=== PATIENT | male | born 1955 | race Caucasian/White ===

== ENCOUNTER → 2016-07-09 | Day surgery (SDC) | payer BC ==
[2016-07-02 08:53] VITALS: Ht 172.7 cm; Wt 109.1 kg
[~2016-07-09] VITALS: Ht 172.7 cm; Wt 109.1 kg
[~2016-07-09] MED LIST: ASPCH81X PO; ATOR10TA82 PO; CHOL2000 PO; INSDGI SC; INSUINJ14 SC; LEVO50TA6 PO; LIDOCAINE HCL 2% 2 ML VIAL (20MG/ML) ONE; LOSA50TA6 PO; METO-157 PO; METO25TA56 PO; METOPROLOL TARTRATE 1 MG/ML VIAL ONE; MULT-506 PO; PROPOFOL IV EMULSION 10 MG/ML 20 ML VIAL IV ONE; SODIUM CHLORIDE 0.9% 500ML 500 ML IV ONE
[2016-07-09 09:03] VITALS: TEMP 36.6
--- NOTE | 2016-07-09 09:29 | Endo History and Physical ---
History & Physical Date of Service: Jul 09, 2016. Chief Complaint: Blood in stool Referring Physician: Valerio History of Present Illness blood in stool, screening Past Surgical History Hx Cardiac Surgery: No Hx Internal Defibrillator: No Hx Pacemaker: No Hx Abdominal Surgery: Yes (MADDIE) Hx of Implantable Prosthesis: No Hx Post-Op Nausea and Vomiting: No Hx Cancer Surgery: No Hx Thoracic Surgery: No Hx Orthopedic: Yes (LUMBAR DISCECTOMY (HERNIATED DISCS)) Hx Urinary Tract Surgery: Yes (RT NEPHRECTOMY) Family History Colon CA Social History Smoking Status: Never Smoker Hx Substance Use: No Hx Alcohol Use: No Allergies Coded Allergies: Sulfa Drugs (Verified Allergy, Intermediate, RASH AND THROAT SWELLING, ) Current Medications Reported Home Medications Medications Dose Route/Sig Max Daily Dose Days Date Category Dose Instructions Aspirin Chewable (Aspirin) 81 Mg Chew 81 Mg PO DAILY 07/02/16 Reported Vitamin D3 (Cholecalciferol) 2,000 Unit Cap 2 Cap PO DAILY 90 07/02/16 Reported Multivitamin (Multivitamins) Tab 1 Tab PO DAILY 07/02/16 Reported Reglan (Metoclopramide HCl) 10 Mg Tab 10 Mg PO QID 07/02/16 Reported Lopressor (Metoprolol Tartrate) 25 Mg Tab 25 Mg PO BID 07/02/16 Reported Cozaar (Losartan Potassium) 50 Mg Tab 50 Mg PO DAILY 07/02/16 Reported Lantus (Insulin Glargine) 100 Unit/Ml Inj 20 Units SC QPM 07/02/16 Reported WILL ADJUST DOSE IF NEEDED PER BSG Levothyroxine Sodium 50 Mcg Tab 1 Tab PO QAM 90 07/02/16 Reported Lipitor (Atorvastatin Calcium) 10 Mg Tab 10 Mg PO DAILY 07/02/16 Reported Novolog Penfill (Insulin Aspart) 100 Unit/ Inj 0 SC AC 11/15/11 Reported Vital Signs Weight (Kilograms): 109.09 Height (Feet): 5 Height (Inches): 8 Date Time Temp Pulse Resp B/P Pulse Ox O2 Delivery O2 Flow Rate FiO2 07/09/16 09:03 36.6 93 20 153/81 94 Room Air Physical Exam General Appearance: WD/WN, no apparent distress Assessment and Plan colonoscopy today
--- NOTE | 2016-07-09 09:45 | Discharge Instructions ---
Endoscopy Patient Instructions Date / Procedure(s) Performed Jul 09, 2016. Colonoscopy Allergy Information Coded Allergies: Sulfa Drugs (Verified Allergy, Intermediate, RASH AND THROAT SWELLING, ) Discharge Date / Findings Jul 09, 2016. diverticulosis and small internal hemorrhoids Medication Instructions Stopped Medication(s): Vitamins Restart Stopped Medication(s): ok to resume home medications as above Provider Instructions Activity Restrictions - No exercising or heavy lifting for 24 hours. - Do not drink alcohol the day of the procedure. - Do not drive a car or operate machinery until the day after the procedure. - Do not make any important decisions or sign important papers in 24 hours after the procedure. Following Day: - Return to full activity which may include returning to work/school. Diet Start your diet with liquids and light foods (jello, soup, juice, toast). Then eat your usual diet if not nauseated. Treatment For Common After Affects For mild abdominal pain, bloating, or excessive gas: - Rest - Eat lightly - Lie on right side Follow-Up Information Follow-up with Valerio as scheduled Anesthesia Information What You Should Know You have had a procedure that required some medicine to reduce anxiety and discomfort. This treatment is called moderate sedation. After receiving the treatment, you may be sleepy, but you will be able to breathe on your own. The effects of the treatment may last for several hours. Follow these instructions along with Activity/Diet recommendations noted above: * Do NOT do anything where dizziness or clumsiness would be dangerous. * Rest quietly at home today, then you can be up and about tomorrow. * Have a responsible person stay with you the rest of today. * You may have had an I.V. today. If so, you may take the dressing off later today. Recommendations Call your doctor if: * Trouble breathing * Continuous vomiting for more than 24 hours * Temperature above 101 degrees * Severe abdominal pain or bloating * Pain not relieved by pain medicine ordered * There is increased drainage or redness from any incision * A large amount of rectal bleeding greater than 2-3 tablespoons. (If you had a polyp/s removed or have hemorrhoids, a small amount of blood - from the rectum is to be expected.) * You have any unanswered questions or concerns. IN THE EVENT OF A SERIOUS EMERGENCY, GO TO THE NEAREST EMERGENCY ROOM Your discharge instructions were prepared by provider Ayala Cordero. Patient Instructions Signature Page Grayson Wilhelm Patient (or Guardian) Signature/Date: I have read and understand the instructions given to me by my caregivers. Caregiver/RN/Doctor Signature/Date: The above-named patient and/or guardian has received patient instructions on this date. + Original Patient Signature Page (only) stays with chart. Please make copy for patient.
--- NOTE | 2016-07-09 09:51 | GI REPORT ---
Procedure Date: 07/09/2016 9:25 AM Procedure: Colonoscopy Indications: Screening for colorectal malignant neoplasm Medicines: Propofol per Anesthesia Complications: No immediate complications. Estimated blood loss: None. Estimated Blood Loss: Estimated blood loss: none. Procedure: Pre-Anesthesia Assessment: - Prior to the procedure, a History and Physical was performed, and patient medications, allergies and sensitivities were reviewed. The patient's tolerance of previous anesthesia was reviewed. - The risks and benefits of the procedure and the sedation options and risks were discussed with the patient. All questions were answered and informed consent was obtained. - Patient identification and proposed procedure were verified prior to the procedure by the physician and the nurse. The procedure was verified in the pre-procedure area in the procedure room. - Mental Status Examination: alert and oriented. Airway Examination: normal oropharyngeal airway and neck mobility. Respiratory Examination: clear to auscultation. CV Examination: normal. Abdominal Examination: bowel sounds present, abdomen soft and non-tender, no masses or organomegaly noted. - ASA Grade Assessment: III - A patient with severe systemic disease. After I obtained informed consent, the scope was passed under direct vision. Throughout the procedure, the patient's blood pressure, pulse, and oxygen saturations were monitored continuously. The Scope was introduced through the anus and advanced to the terminal ileum. The colonoscopy was performed without difficulty. The patient tolerated the procedure well. The quality of the bowel preparation was good. Findings: The perianal and digital rectal examinations were normal. Pertinent negatives include normal sphincter tone and no palpable rectal lesions. The terminal ileum appeared normal. Multiple small and large-mouthed diverticula were found in the sigmoid colon. Internal hemorrhoids were found during retroflexion. The hemorrhoids were small and Grade I (internal hemorrhoids that do not prolapse). Impression: - The examined portion of the ileum was normal. - Diverticulosis in the sigmoid colon. - Internal hemorrhoids. - No specimens collected. Recommendation: - Repeat colonoscopy in 10 years for screening purposes. - Return to referring physician as previously scheduled. - Discharge patient to home. Ayala Cordero D.O. Ayala Cordero DO 07/09/2016 9:50:26 AM This report has been signed electronically. Note Initiated On: 07/09/2016 9:25 AM I attest to the content of the Intraoperative Record and orders documented therein, exceptions below
[2016-07-09 10:18] VITALS: BP 148/93; PULSE 72; O2SAT 94
--- NOTE | 2016-07-09 10:26 | Anesthesiology Progress Note ---
Anesthesia Post Op Note Date & Time Jul 09, 2016 at 10:27 Vital Signs Pain Intensity: 0 Vital Signs Past 12 Hours Date Time Temp Pulse Resp B/P Pulse Ox O2 Delivery O2 Flow Rate FiO2 07/09/16 10:18 72 20 148/93 94 Room Air 07/09/16 10:04 73 20 156/91 94 Room Air 07/09/16 09:49 77 20 128/68 95 Room Air 07/09/16 09:03 36.6 93 20 153/81 94 Room Air Notes Mental Status: alert / awake / arousable, participated in evaluation Pt Amnestic to Procedure: Yes Nausea / Vomiting: adequately controlled Pain: adequately controlled Airway Patency, RR, SpO2: stable & adequate BP & HR: stable & adequate Hydration State: stable & adequate Anesthetic Complications: no major complications apparent Pt doing well.
== END | disposition home or self-care (01) ==
LOC: C.GI 08:31
PROVIDERS: ATTEND Internal Medicine
DX: Z12.11 Encounter for screening for malignant neoplasm of colon (principal); Z80.0 Family history of malignant neoplasm of digestive organs; K57.50 Diverticulosis of both small and large intestine without perforation or abscess without bleeding; K64.8 Other hemorrhoids; Z88.2 Allergy status to sulfonamides; Z98.890 Other specified postprocedural states; Z79.82 Long term (current) use of aspirin

== ENCOUNTER → 2017-03-07 | Outpatient (CLI) | payer BC ==
[~2017-03-07] MED LIST changes: -LIDOCAINE HCL 2% 2 ML VIAL (20MG/ML) ONE; -METOPROLOL TARTRATE 1 MG/ML VIAL ONE; -PROPOFOL IV EMULSION 10 MG/ML 20 ML VIAL IV ONE; -SODIUM CHLORIDE 0.9% 500ML 500 ML IV ONE
--- NOTE | 2017-03-07 10:44 | DIAGNOSTIC IMAGING REPORT ---
(CHEST) THORAX WITHOUT CT DOSE: 1849.04 mGy.cm CLINICAL HISTORY: 61 years-old Male with KIDNEY CANCER. History of prior right-sided nephrectomy with history of kidney cancer TECHNIQUE: Multiaxial CT images of the chest were performed without contrast. A dose lowering technique was utilized adhering to the principles of ALARA. COMPARISON: CT abdomen and pelvis of same day FINDINGS: Thyroid is homogeneous. Evaluation for adenopathy is limited without the use of IV contrast. Mildly prominent hilar and mediastinal lymph nodes are noted. Right hilar lymph nodes are up to 1.8 x 1.2 cm. Heart is normal in size without pericardial effusion. Coronary arterial calcifications are present. There is no pneumothorax, pleural effusion or focal airspace consolidation. Scattered calcific granulomas are noted. There are multiple scattered solid pulmonary nodules of the bilateral lungs within a multilobar distribution, most of which measure in the 2-3 mm range (see bookmarks). Within the right upper lobe, there are nodules in a tree-in-bud distribution as seen on image 122 of series 6 measuring up to 3 mm. 4 mm pleural-based nodularity of the left lower lobe on image 178 series 6 suggests scarring. No pulmonary masses identified. Central airways are patent. Prior cholecystectomy. No acute amount the of the imaged upper abdomen. Mild symmetric bilateral gynecomastia. There are no suspicious lytic or blastic bony lesions identified. Multilevel endplate spurring of the spine. Hemangioma at T11. Ill-defined lucent lesion measuring 9 mm involving the posterior left ninth rib on image 199 series 6 is nonspecific however appears nonaggressive. IMPRESSION: 1. No acute intrathoracic abnormality identified. 2. Prior granulomatous disease. 3. Mildly prominent hilar and mediastinal lymph nodes are nonspecific however are likely benign. Attention at follow-up recommended. 4. Scattered solid pulmonary nodules in a multilobar distribution bilaterally are seen measuring up to 2-3 mm, some of which are within a tree-in-bud distribution within the right upper lobe suggesting infectious or inflammatory etiology. 5. No lobar airspace consolidations. 6. 9 mm lucent lesion of the posterior left ninth rib is nonspecific however appears nonaggressive. Please refer to below summary of Fleischner criteria recommendations for follow-up of incidental CT nodules (Katiana Rendon, Guidelines for management of small pulmonary nodules detected on CT scans: A statement from the Fleischner Society, Radiology 237: [phone].) SOLID NODULES Multiple nodules size: <6 mm * Low risk patients: no routine follow-up * high risk patients: optional CT at 12 months Note: newly detected indeterminate nodule in persons 35 years of age or older. * Low risk patients: minimal or absent history of smoking and/or other known risk factors * high risk patients: history of smoking or of other known risk factors (e.g. first degree relative with lung cancer, or exposure to asbestos, radon, uranium) * if a nodule up to 8 mm is partly solid or is ground glass further follow-up is required after 24 months to exclude possible slow growing adenocarcinoma (LLUVIA) The above report was generated using voice recognition software. It may contain grammatical, syntax or spelling errors. Electronically signed by: Diego Castillo M.D. 03/07/2017 10:43 AM Dictated Date/Time: 03/07/2017 10:27 AM
--- NOTE | 2017-03-07 12:10 | DIAGNOSTIC IMAGING REPORT ---
CT SCAN OF THE ABDOMEN AND PELVIS WITHOUT IV CONTRAST CLINICAL HISTORY: Renal cell carcinoma. COMPARISON STUDY: No priors. TECHNIQUE: CT scan of the abdomen and pelvis is performed from the lung bases to the proximal femora. Images are reviewed in the axial, sagittal, and coronal planes. IV contrast was not administered for this examination as per the referring clinician. Note that the examination is suboptimal without oral and IV contrast. A dose lowering technique was utilized adhering to the principles of ALARA. FINDINGS: Lung bases: The heart is normal in size and without pericardial effusion. There are scattered coronary artery calcifications. There is a calcified granuloma the left lung base. The lung bases are otherwise clear. There is a tiny hiatal hernia. Liver: The unenhanced liver is normal in size, contour, and attenuation. There is no intrahepatic biliary ductal dilatation. Gallbladder: Surgically absent. Spleen: Normal in size and attenuation. Pancreas: The unenhanced pancreas is atrophic and grossly unremarkable. Adrenal glands: Unremarkable. Kidneys: The right kidney is surgically absent. There is no evidence of recurrent or residual soft tissue lesion in the right renal fossa. The unenhanced left kidney demonstrates mild cortical atrophy and is without hydronephrosis. There are no left renal calculi identified. There is no evidence of contour deforming renal mass lesion involving the left kidney. Abdominal vasculature: The abdominal aorta is normal in course and caliber noting mild atherosclerotic calcification. Bowel: There is mild colonic diverticulosis without CT evidence of acute diverticulitis. No bowel obstruction is seen. The appendix is well-visualized and normal. Peritoneum: There is no intraperitoneal free air or abdominal ascites. Small foci of induration within the ventral abdominal wall are likely related to subcutaneous injections. Fat necrosis is suggested in the right retroperitoneal space on image #231. Lymphadenopathy: None. Pelvic viscera: The prostate gland is diminutive and heterogeneous. The bladder wall appears thickened and trabeculated suggesting chronic outlet obstruction. Skeletal structures: There is mild to moderate lumbosacral spondylosis. A hemangioma is noted in the body of T11. No lytic or blastic lesions are seen. IMPRESSION: 1. There is no evidence of metastatic disease in the abdomen or pelvis. 2. There are postoperative changes from previous right nephrectomy. 3. Mild colonic diverticulosis without CT evidence of acute diverticulitis. 4. Additional findings as above. Electronically signed by: Chacho Suarez M.D. 03/07/2017 12:09 PM Dictated Date/Time: 03/07/2017 12:01 PM
== END | disposition home or self-care (01) ==
LOC: C.CTS 10:05
PROVIDERS: ATTEND Urology
DX: C64.1 Malignant neoplasm of right kidney, except renal pelvis (principal); R91.8 Other nonspecific abnormal finding of lung field; R59.0 Localized enlarged lymph nodes

== ENCOUNTER → 2017-03-22 | Outpatient (CLI) | payer OTHER ==
--- NOTE | 2017-03-22 19:06 | DIAGNOSTIC IMAGING REPORT ---
L ELBOW MIN 3 VIEWS ROUTINE CLINICAL HISTORY: Left elbow pain. COMPARISON: None FINDINGS: Note is made of a 1.5 cm bony excrescence arising from the medial metadiaphysis of the left humerus consistent with a supracondylar process. Alignment of the left elbow is anatomic. There is no fracture or joint effusion. There is no osseous lesion. IMPRESSION: 1. No acute fracture or joint effusion of the left elbow. 2. Supracondylar process of the left humerus, a congenital/developmental finding. 3. Mild osteoarthritis of the ulnotrochlear articulation. Electronically signed by: Michael Love M.D. 03/22/2017 7:04 PM Dictated Date/Time: 03/22/2017 7:02 PM
--- NOTE | 2017-03-22 19:09 | DIAGNOSTIC IMAGING REPORT ---
L HAND MIN 3 VIEWS ROUTINE CLINICAL HISTORY: Joint pain. COMPARISON: None FINDINGS: Alignment of the left hand is anatomic. No acute fracture. No erosions are identified. There is minimal joint space narrowing and mild osteophytosis within several articulations of the left hand. Apparent soft tissue swelling is noted within several fingers, most pronounced at the PIP joints of the second, third and fourth digits. IMPRESSION: 1. No acute fracture or dislocation within the left hand. 2. 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 Electronically signed by: Michael Love M.D. 03/22/2017 7:07 PM Dictated Date/Time: 03/22/2017 7:04 PM
== END | disposition home or self-care (01) ==
LOC: C.RAD 17:57
PROVIDERS: ATTEND Physician Assistant
DX: M19.042 Primary osteoarthritis, left hand (principal); M25.629 Stiffness of unspecified elbow, not elsewhere classified

== ENCOUNTER → 2017-11-13 | Outpatient (CLI) | payer OTHER ==
[2017-11-13 10:30] LABS: HEMOGLOBIN 14.9 g/dL (14.0-18.0); MEAN CELL VOLUME 97.3 fL (80-100); MEAN CORPUSCULAR HEMOGLOBIN 31.5 pg (25-34); MEAN CORPUSCULAR HGB CONC 32.4 g/dl (32-36); MEAN PLATELET VOLUME 11.8 fL (7.4-10.4); PLATELET COUNT 198 K/uL (130-400); RED CELL DISTRIBUTION WIDTH CV 12.6 % (11.5-14.5); RED CELL DISTRIBUTION WIDTH SD 44.9 fL (36.4-46.3); WHITE BLOOD COUNT 7.97 K/uL (4.8-10.8)
[2017-11-13 10:54] LABS: ALBUMIN 3.4 gm/dl (3.4-5.0); BLOOD UREA NITROGEN 25 mg/dl (7-18); CALCIUM 8.5 mg/dl (8.5-10.1); CARBON DIOXIDE 25 mmol/L (21-32); CREATININE 1.73 mg/dl (0.60-1.40); GLUCOSE 234 mg/dl (70-99); PHOSPHORUS 3.2 mg/dl (2.5-4.9); POTASSIUM 4.5 mmol/L (3.5-5.1); SODIUM 138 mmol/L (136-145)
== END | disposition home or self-care (01) ==
LOC: C.LAB 10:00
PROVIDERS: ATTEND Internal Medicine Nephrology
DX: E11.8 Type 2 diabetes mellitus with unspecified complications (principal); I12.9 Hypertensive chronic kidney disease with stage 1 through stage 4 chronic kidney disease, or unspecified chronic kidney disease; C64.9 Malignant neoplasm of unspecified kidney, except renal pelvis; E55.9 Vitamin D deficiency, unspecified; N18.3 Chronic kidney disease, stage 3 (moderate)

== ENCOUNTER 2020-10-16 20:16 | Inpatient (IN) ==
[2020-10-16] MEDS ORDERED: GLUCOSE 10 TABS/TUBE PO PRN (22:57)
[2020-10-16] MEDS ORDERED: CARBOHYDRATES FOR HYPOGLYCEMIA PO PRN (22:57)
[2020-10-16] MEDS ORDERED: DEXTROSE 50% 50 ML SYRINGE IV PRN (22:57)
[2020-10-16] MEDS ORDERED: GLUCAGON FOR INJ 1 MG VIAL SQ PRN (22:57)
[2020-10-16] MEDS ORDERED: ACETAMINOPHEN 325 MG TAB PO PRN (22:57)
[2020-10-16] MEDS ORDERED: GLUCOSE 40% GEL 15 GM TUBE PO PRN (22:57)
[2020-10-16] MEDS ORDERED: FLUTICASONE PROPIONATE NA SPR 16 GM BTL PRN (23:20)
--- NOTE | 2020-10-16 23:27 | History & Physical Report ---
Date of Service October 16, 2020 Assessment & Plan (1) Acute renal failure: 64 yo M Hx renal cell carcinoma s/p right nephrectomy in 2013, HTN, HLD, hypothyroidism, DM2 on insulin therapy admitted for acute renal failure with suspected tick-borne infection. Acute renal failure, Hx right nephrectomy for RCC: - History of radical HALN R kidney and adrenal gland [place] [facility] [place] with negative margins. - Presented to outside hospital today with several days of nausea, diarrhea, malaise, fatigue, head and body aches. - Had been thought to be sinus infection by PCP office via telehealth. - Found to have creatinine 6 (baseline 1.7) with BUN/Cr ratio of 10. - CTAP without obstructive signs, no pyelonephritis. - UA without infectious signs. - Will check urine and serum lytes, urine protein/Cr ratio. - Mcneill placed to monitor strict ins and outs. - No indication for emergent dialysis; K normal at outside facility prior to transfer, no arrhythmia, still making urine (though less than normal per patient). - LR at 100cc/hr x1 bag. - PCU for cardiac monitoring. - Nephrology consult ordered for AM. Suspected tick-borne illness: - removed small black item from right thigh several days ago, questions if it was a tick. - Labwork with significant thrombocytopenia and leukopenia, elevated LFTs, ARF suggests possible tick-borne cause. - COVID 19 test negative at outside facility and has received vaccination x2. - Repeat CBC, CMP. - Anaplasma, Babesia, Lyme, Ehrlichia labs ordered. - Will start doxycycline 100mg IV BID and await tick labs. Elevated LFTs: - Noted at outside ER with mild elevated AST/ALT to 100s. - No history of liver disease. - Suspect elevation due to tick-borne illness. - CTAP and RUQ US without evidence of hepatic steatosis or hepatitis. Patient had GB removed several years ago. DM2: - Chronic, on insulin therapy. - Lantus 15u BID with SSI, adjust based on BSGs. - DM2 diet. HTN, HLD: - Continue metoprolol and statin. - Hold ARB in setting of ARF. Hypothyroidism: - Continue levothyroxine. Code Status: FULL CODE FEN: DM2 diet DVT ppx: SCDs, no chemoppx given plts 40 Dispo: PCU, Nephrology consult AM, labwork for tick-borne causes of lab abnormalities. (2) Hypertension: (3) Hypothyroidism: (4) Hyperlipidemia: (5) Diabetes mellitus type 2 with complications: Admission and Anticipated Discharge Date Admission Date: October 16, 2020 History of Present Illness Chief Complaint: ARF Primary Care Provider: Gypsy Matt, DO 64 yo M Hx renal cell carcinoma s/p right nephrectomy in 2012, HTN, HLD, hypothyroidism, DM2 on insulin therapy presents as a direct admission for acute renal failure, elevated LFTs, leukopenia, and thrombocytopenia. History gathered from outside hospital records, patient, and patient's . For the last several days patient has had fatigue, malaise, nausea, diarrhea, headaches. He was evaluated via Telehealth by PCP and thought to be sinus infection, supportive care. When symptoms did not go away and patient began to have decreased urination and changes in mental status they went to [place] [facility]. There he had labwork which showed elevated Cr of 6, elevated LFTs, thrombocytopenia to 40s, and leukopenia. CTAP and RUQ US without liver pathology, pyelonephritis, other renal pathologies. CXR negative for pneumonia or fluid overload. Patient follows with Dr. Powell and was advised to be admitted here at [facility] for ARF. On my interview patient denies chest pain, SOB, fevers, chills, recent sick contacts, vomiting, abdominal pain. He denies hematuria, dysuria. He does not recall any recent tick bites, however reports "picking a small black spot off of his thigh a few days ago". Allergies Allergy/AdvReac Type Severity Reaction Status Date / Time Sulfa (Sulfonamide Allergy Intermediate RASH AND Verified 10/14/20 15:57 Antibiotics) THROAT SWELLING Home Medications Medication Instructions Recorded Confirmed Type aspirin 81 mg tablet 81 mg PO DAILY tab 12/22/18 10/16/20 History multivitamin 1 tab PO DAILY 12/22/18 10/16/20 History pen needle, diabetic 31 gauge x #50 ea 12/29/18 10/16/20 Rx 08/24" cholecalciferol (vitamin D3) 50 4,000 units PO DAILY tab 01/17/19 10/16/20 History mcg (2,000 unit) tablet metoclopramide HCl 10 mg tablet 10 mg PO BID #180 tab 01/29/20 10/16/20 Rx blood sugar diagnostic See Rx Instructions .ROUTE 02/15/20 10/16/20 Rx .COMPLEX #400 each Humalog KwikPen Insulin 100 See Rx Instructions .ROUTE 03/12/20 10/16/20 Rx unit/mL subcutaneous .COMPLEX #45 ml NS losartan 50 mg tablet See Rx Instructions .ROUTE 04/10/20 10/16/20 Rx .COMPLEX #90 tablet insulin glargine 100 unit/mL 30 unit SUBCUT HS #10 ml 05/05/20 10/16/20 Rx subcutaneous solution metoprolol tartrate 25 mg tablet 25 mg PO DAILY #90 tab 06/11/20 10/16/20 Rx atorvastatin 10 mg tablet 10 mg PO DAILY #90 tab 07/10/20 10/16/20 Rx levothyroxine 50 mcg tablet 50 mcg PO DAILY #90 tab 09/01/20 10/16/20 Rx sildenafil 100 mg tablet 100 mg PO DAILY PRN #20 tab 09/12/20 10/16/20 Rx fluticasone propionate [Flonase 1 sprays INTNAS DAILY PRN 10/16/20 10/16/20 History Allergy Relief] Past Med/Surg History Medical History Arthritis Benign essential hypertension Chronic kidney disease, stage III (moderate) Diabetes mellitus type 2 with complications Diabetic retinopathy Gastroparesis Hyperlipidemia Hypothyroidism Lumbar disc disease Renal cell carcinoma SNHL (sensorineural hearing loss) Vitamin D deficiency Surgical History History of back surgery (2004) 2005 S/P cholecystectomy S/p nephrectomy (06/2015) 06/2015- right secondary to RCC Family History Sister Breast cancer Mother Ovarian cancer Father Skin cancer Other No family history of adverse response to anesthesia No family history of bleeding disorder Denies family history of Prostate cancer Myocardial infarction Colorectal cancer Social History Smoking Status: Unknown if ever smoked Tobacco Type: Cigarettes and Smokeless Tobacco (Dip or Chew) Age Started Using Tobacco: 20; Age Quit Using Tobacco: 22; Second Hand Exposure: No; Hx Alcohol Use: No Hx Substance Use: No Preferred Language: Icelandic Communication Ability: Effective Visual Impairment: No Limitations Hearing Ability: Normal Manager Clinical Services Required: No Beliefs That Will Affect Care: None marital status: Current Living Situation: Family current occupational status: employed 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 Feels Safe at Home: Yes Childhood Exposure to Second-Hand Smoke: No caffeine: Yes during the past year weight has: remained stable Dental Care, Regularly: No Physical Activity Frequency: Daily Seatbelt Use: always Sunscreen Use: Yes Assistive Devices: None Review of Systems Review of Systems: All systems reviewed & are unremarkable except as noted in HPI & below Constitutional: + body aches, + fatigue and + malaise; no fever and no chills Respiratory: no cough and no dyspnea Cardiovascular: no chest pain, no palpitations and no edema Gastrointestinal: + nausea and + diarrhea/loose stools; no abdominal pain and no constipation Neurologic: + headache(s) and + confusion Physical Exam Constitutional: WD/WN, vitals as above Eyes: PERRL, conjunctivae normal, anicteric sclerae Neck: normal visual inspection Respiratory: normal respiratory effort, lungs clear to auscultation Cardiovascular: RRR, no murmur, no edema Gastrointestinal (Abdomen): Inspection/Auscultation: + abdomen distended and normal bowel sounds Percussion/Palpation: + abdomen tender (mild epigastric) and abdomen soft Musculoskeletal: no cyanosis or clubbing, moves all extremities Skin: no rashes, warm and dry Neurologic: Alert, tired appearing, answers questions appropriately. No tremors. Normal speech Psychiatric: A+Ox3, euthymic affect Results & Data Results & Data ([facility]) Vital Signs (Past 12 Hours) Vital Signs Temp Pulse Resp BP Pulse Ox 10/16/20 22:38 37.6 C H 97 H 18 154/79 H 90 Code Status & VTE Plan VTE Prophylaxis Plan VTE Prophylaxis will be ordered: Yes Supervising Physician Co-Signing Physician Notes Patient seen and examined, chart reviewed, case discussed with Dr. Askew and I agree with her assessment and plan as documented above. In brief, patient is a 64yo male with history of HTN, CKD III, HLP presenting from outside facility with complaint of CONCEPCION, cough, myalgias, diarrhea and weakness. Abnormal LFTs. removed a "black speck" from patient's right thigh. Also with ADAM on CKD, minimal UOP On exam he is afebrile, HD stable, NAD Skin - warm, dry, intact, small area of redness noted right thigh HEENT - NC/AT, PERRL, MMM, Neck supple Heart - +S1/S2, regular Lungs - CTA Abd - +BS, soft, mildly distended, mild epigastric tenderness Ext - warm, well perfused, no clubbing/cyanosis/edema Labs and images reviewed. Significant for pancytopenia - WBC=2.33, Hgb=12.1, Hct=35.6, MCV=92.5, Plt=36 Rm=038, CO2=19, BUN=65, Cr=6.44 ARH=287, VTL=375, DD=953, Alb=2.4 Anaplasma smear - POSITIVE Assessment/Plan - 64yo male with CONCEPCION/cough/myalgias/weakness - pancytopenia at baseline. LFT abnormalities and oliguric renal failure -Mcneill, monitor strict I/Os, check FeNA, monitor electrolytes and acid-base status. Patient may need HD d/t oliguria -Nephrology consultation appreciated -Doxycycline for Anaplasmosis -Repeat liver studies -Remainder of plan as above Resident Activity Tracking Resident Involvement: Resident Care Provided Care Provided: Adult Hospital Medicine (1) Acute renal failure Acute renal failure type: unspecified Qualified Code(s): N17.9 - Acute kidney failure, unspecified (2) Hyperlipidemia Hyperlipidemia type: unspecified Qualified Code(s): E78.5 - Hyperlipidemia, unspecified (3) Hypothyroidism Hypothyroidism type: unspecified Qualified Code(s): E03.9 - Hypothyroidism, unspecified (4) Hypertension Hypertension type: unspecified Qualified Code(s): I10 - Essential (primary) hypertension
[2020-10-16] MEDS ORDERED: LACTATED RINGER'S 1,000 ML IV SCH (23:30)
[2020-10-16] MEDS: DOXYCYCLINE HYCLATE 100 MG in DEXTROSE 5% 100 ML IV SCH (23:36)
[2020-10-16] MEDS: PATIENT'S HEIGHT AND/OR WEIGHT NEEDED SCH (23:36)
[2020-10-17 00:22] LABS: Albumin Globulin Ratio 0.8 (0.9-2); Albumin Level 2.4 gm/dl (3.4-5.0); Bilirubin,Total 0.6 mg/dl (0.2-1); Calcium 7.6 mg/dl (8.5-10.1); Est GFR (African American) 9.8 ml/min; Est GFR (Non-African American) 8.4 ml/min; Globulin 3.2 gm/dl (2.5-4.0); Potassium 4.1 mmol/L (3.5-5.1); Total Protein 5.6 gm/dl (6.4-8.2)
[2020-10-17 00:30] LABS: Hematocrit (blood only) 35.6 % (42-52); Hemoglobin 12.1 g/dL (14.0-18.0); Mean Corpuscular Hemoglobin 31.4 pg (25-34); Mean Corpuscular Volume 92.5 fL (80-100); Mean Platelet Volume 13.5 fL (7.4-10.4); Platelet Count 36 K/uL (130-400); RDW Standard Deviation 47.8 fL (36.4-46.3); Red Blood Count 3.85 M/uL (4.7-6.1); White Blood Count 2.33 K/uL (4.8-10.8)
[2020-10-17 00:40] LABS: Basophils # (auto) 0.02 K/uL (0-0.2); Basophils % (auto) 0.9 %; Echinocytes 3+; Immature Granulocytes # (auto) 0.01 K/uL (0.00-0.02); Immature Granulocytes % (auto) 0.4 %; Lymphocytes % (auto) 17.2 %; Monocytes # (auto) 0.11 K/uL (0.11-0.59); Monocytes % (auto) 4.7 %; Neutrophils # (auto) 1.79 K/uL (1.4-6.5); Platelet Estimate Decreased (Normal)
[2020-10-17 00:42] LABS: Neutrophils % (auto) 76.8 %
[2020-10-17 01:18] LABS: Appearance Urine Cloudy (Clear); Bacteria Urine Automated Negative (Negative); Blood Urine 3+ (Negative); Color Urine Dark Yellow; Epithelial Cell Urine Auto >30 /lpf (0-5); Glucose Urine UA Trace (Negative); Ketones Urine Trace (Negative); Leukocyte Esterase Urine Negative (Negative); Nitrite Urine Negative (Negative); Protein Urine 3+ (Negative); RBC Urine Automated >30 /hpf (0-4); Specific Gravity Urine 1.018 (1.000-1.030); Urobilinogen Urine Negative (Negative)
[2020-10-17 01:27] LABS: Bilirubin Urine 1+ (Negative)
[2020-10-17 01:35] LABS: Total Protein Urine Random 315.4 mg/dl (0-11.9)
[2020-10-17 01:37] LABS: Lyme Ab IgG w/WB Rflx Negative (Negative); Lyme Ab IgM w/WB Rflx Negative (Negative)
[2020-10-17 03:24] LABS: Amorphous Sediment Urine Present (None Prsent); Cast Urine Automated 0 /lpf (0-5)
--- NOTE | 2020-10-17 05:29 | Billing Data ---
Date of Service October 16, 2020 Coding Level of Care Code 09044 Initial Inpt Care Lvl 3
[2020-10-17] MEDS: LEVOTHYROXINE SODIUM 50 MCG TABLET PO SCH (05:48)
[2020-10-17 06:41] LABS: Anaplasmosis Smear(Rpt to DOH) Pos for Anaplasma
[2020-10-17] MEDS: PATIENT'S HEIGHT AND/OR WEIGHT NEEDED SCH ×2 (07:34→07:35)
[2020-10-17] MEDS: INSULIN ASPART 100 UNITS/ML 3 ML PEN SC SCH ×5 (07:52→22:28)
[2020-10-17] MEDS: MULTIVITAMIN TAB PO SCH (07:57)
[2020-10-17] MEDS: ATORVASTATIN 10 MG TAB PO SCH (07:57)
[2020-10-17] MEDS: METOPROLOL TARTRATE 25 MG TAB PO SCH (08:00)
--- NOTE | 2020-10-17 08:34 | Hospitalist Progress Note ---
Date of Service October 17, 2020 Assessment & Plan (1) Acute renal failure: 64 yo M Hx renal cell carcinoma s/p right nephrectomy in 2013, HTN, HLD, hypothyroidism, DM2 on insulin therapy admitted for acute renal failure with suspected tick-borne infection. Acute renal failure, due to anaplasmosis septic hypovolemia, Hx right nephrectomy for RCC - History of radical HALN R kidney and [place] [facility] [place] with [place]. . - Found to have creatinine 6 (baseline 1.7) with BUN/Cr ratio of 10. - CTAP without obstructive signs, no pyelonephritis. UA without infectious signs. - Urine lytes showing evidence of intrinsic damage - Mason placed to monitor strict ins and outs. - appreciate nephrology's recommendations - temporary dialysis catheter placed today by vascular surgery given worsening Cr, metabolic acidosis, anuria - dialysis today? - PCU for cardiac monitoring. DKA, Metabolic Acidosis without anion gap on IDDM2 - B-OH elevated to 34, glucose 400s this am, persistently 300s through morning into afternoon despite novolog coverage and being NPO - missed 30u lantus last night and received 15u this morning. - received multiple doses of regular insulin 10 mg IV to catch up with sugars and bring down control. 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 Patient had GB removed several years ago. HTN, HLD: - Continue metoprolol and statin. - Hold ARB in setting of ARF. Hypothyroidism: - Continue levothyroxine. Code Status: FULL CODE FEN: DM2 diet DVT ppx: SCDs, no chemoppx given plts 40 Dispo: PCU (2) Hypertension: (3) Hypothyroidism: (4) Hyperlipidemia: (5) Diabetes mellitus type 2 with complications: Admission and Anticipated Discharge Date Admission Date: October 16, 2020 Supervising Physician Co-Signing Physician Notes I personally examined the patient and verified all jovel points of history and exam, discussed case, and agree with decision making with Dr Millard. Mostly worried about dialysis, and what this might mean for long-term implications. Family present with multiple questions. Answered to the best of my ability. Vitals noted, in general he is awake and alert pleasant no distress. He does appear very fatigued. HEENT normocephalic atraumatic mucous membranes moist. Breathing unlabored no accessory muscle use good effort. Skin shows no rashes no pallor or icterus. Anaplasmosis with subsequent acute renal failuremost likely ATNtreating with IV doxycycline, has dialysis access, anticipate initiation of dialysis. Discussed with patient with ATN in his context, hopefully this does not mean permanent end-stage renal disease as much is severe acute renal f ailurediscussed that unfortunately for planning purposes this will be something that has to require day today assessment and will be very open ended, but will continue aggressive treatment. Otherwise as above. Subjective feeling somewhat better this morning. states he had been having chills and generally feeling ill for approximately a week. +dry heaving, diarrhea without blood. noticed he was producing less urine in the past two days, which brought him to the ER. Review of Systems Review of Systems: All systems reviewed & are unremarkable except as noted in Subjective Physical Exam Physical Exam: Constitutional:centrally obese, mildly uncomfortable appearing Eyes: EOMI, pupils equal and reactive bilaterally, no scleral icterus Cardiac: RRR, no murmurs, gallops or rubs. Normal S1, S2 Pulm: CTA BL, no wheezes, rhonchi, crackles or rubs, moving air well throughout both lungs Abd: soft, nontender, nondistended, normal bowel sounds, no rebound or guarding Extremities: 2+ peripheral pulses, no edema Neuro: no focal deficits, moving all 4 limbs, A&Ox3 : mason cath in place, mason bag with <200 ml orange, dark urine Results & Data Results & Data ([facility]) Vital Signs (Past 12 Hours) Vital Signs Temp Pulse Pulse Resp BP Pulse Ox Pulse Ox 10/17/20 07:58 36.7 C 69 18 120/69 96 10/17/20 07:21 87 10/17/20 04:02 37.3 C 97 H 22 132/72 95 10/17/20 01:09 90 10/16/20 23:25 37.6 C H 97 H 20 154/79 H 90 10/16/20 22:57 88 L 10/16/20 22:38 37.6 C H 97 H 18 154/79 H 90 Laboratory Results WBC 2.33 K/uL (4.8-10.8) L 10/16/20 23:19 RBC 3.85 M/uL (4.7-6.1) L 10/16/20 23:19 Hgb 12.1 g/dL (14.0-18.0) L 10/16/20 23:19 POC Hgb 10.9 g/dl (14.0-18.0) L 10/17/20 12:39 Hct 35.6 % (42-52) L 10/16/20 23:19 POC Hct 32 % (42-52) L 10/17/20 12:39 MCV 92.5 fL (80-100) 10/16/20 23:19 MCH 31.4 pg (25-34) 10/16/20 23:19 MCHC 34.0 g/dL (32-36) 10/16/20 23:19 RDW Std Deviation 47.8 fL (36.4-46.3) H 10/16/20 23:19 RDW Coeff of Rony 14.0 % (11.5-14.5) 10/16/20 23:19 Plt Count 36 K/uL (130-400) L 10/16/20 23:19 MPV 13.5 fL (7.4-10.4) H 10/16/20 23:19 Immature Gran % (Auto) 0.4 % 10/16/20 23:19 Neut % (Auto) 76.8 % 10/16/20 23:19 Lymph % (Auto) 17.2 % 10/16/20 23:19 Donley % (Auto) 4.7 % 10/16/20 23:19 Eos % (Auto) 0.0 % 10/16/20 23:19 Baso % (Auto) 0.9 % 10/16/20 23:19 Neut # (Auto) 1.79 K/uL (1.4-6.5) 10/16/20 23:19 Lymph # (Auto) 0.40 K/uL (1.2-3.4) L 10/16/20 23:19 Donley # (Auto) 0.11 K/uL (0.11-0.59) 10/16/20 23:19 Eos # (Auto) 0.00 K/uL (0-0.5) 10/16/20 23:19 Baso # (Auto) 0.02 K/uL (0-0.2) 10/16/20 23:19 Immature Gran # (Auto) 0.01 K/uL (0.00-0.02) 10/16/20 23:19 Blood Smear Review Cancelled 10/16/20 23:19 Platelet Estimate Decreased (Normal) L 10/16/20 23:19 Echinocytes 3+ 10/16/20 23:19 Sample Site L Radial 10/17/20 12:39 POC pH 7.30 (7.35-7.45) L 10/17/20 12:39 POC pCO2 33 mmHg (35-46) L 10/17/20 12:39 POC pO2 73 mmHg (80-95) L 10/17/20 12:39 POC HCO3 17 tiffanie/L (19-24) L 10/17/20 12:39 POC Total CO2 18 mmol/L (24-31) L 10/17/20 12:39 POC Base Excess -10.0 tiffanie/L (-9-1.8) L 10/17/20 12:39 ABG pH (Temp Correct) 7.304 (7.35-7.45) L 10/17/20 12:39 ABG pCO2 (Temp Corrct 33 mmHg (35-46) L 10/17/20 12:39 POC ABG pO2 at Pt Temp 73 10/17/20 12:39 POC ABG O2 Sat 93.0 % (90-95) 10/17/20 12:39 Maik Test Pass 10/17/20 12:39 O2 Delivery Device Room Air 10/17/20 12:39 POC Sodium 127 mmol/L (135-144) L 10/17/20 12:39 Sodium 129 mmol/L (136-145) L 10/17/20 11:36 POC Potassium 4.0 mmol/L (3.3-5.0) 10/17/20 12:39 Potassium 4.7 mmol/L (3.5-5.1) 10/17/20 11:36 Chloride 98 mmol/L (98-107) 10/17/20 11:36 Carbon Dioxide 18 mmol/L (21-32) L 10/17/20 11:36 Anion Gap 13.0 (3-11) H 10/17/20 11:36 BUN 79 mg/dl (7-18) H 10/17/20 11:36 Creatinine 7.75 mg/dl (0.6-1.4) H* 10/17/20 11:36 Est Cr Clr Drug Dosing 11.6 ml/min 10/17/20 11:36 Est GFR ( Amer) 7.8 ml/min 10/17/20 11:36 Est GFR (Non-Af Amer) 6.8 ml/min 10/17/20 11:36 BUN/Creatinine Ratio 10.2 (10-20) 10/17/20 11:36 Glucose 363 mg/dl (70-99) H* 10/17/20 11:36 POC Glucose 214 mg/dl (70-99) H 10/17/20 14:51 Calcium 7.2 mg/dl (8.5-10.1) L 10/17/20 11:36 Phosphorus 4.6 mg/dl (2.5-4.9) 10/17/20 09:07 Total Bilirubin 0.6 mg/dl (0.2-1) 10/16/20 23:19 AST 203 U/L (15-37) H 10/16/20 23:19 ALT 133 U/L (12-78) H 10/16/20 23:19 Alkaline Phosphatase 178 U/L (45-117) H 10/16/20 23:19 Total Creatine Kinase 1570 U/L (39-308) H 10/16/20 23:19 Total Protein 5.6 gm/dl (6.4-8.2) L 10/16/20 23:19 Albumin 2.2 gm/dl (3.4-5.0) L 10/17/20 09:07 Globulin 3.2 gm/dl (2.5-4.0) 10/16/20 23:19 Albumin/Globulin Ratio 0.8 (0.9-2) L 10/16/20 23:19 Beta-Hydroxybutyric Acd 24.51 mg/dl (0.2-2.81) H 10/17/20 11:36 Urine Color Dark Yellow 10/17/20 00:45 Urine Appearance Cloudy (Clear) A 10/17/20 00:45 Urine pH 5.0 (4.5-7.5) 10/17/20 00:45 Ur Specific Kel[place] 1.018 (1.000-1.030) 10/17/20 00:45 Urine Protein 3+ (Negative) H 10/17/20 00:45 Urine Glucose (UA) Trace (Negative) H 10/17/20 00:45 Urine Ketones Trace (Negative) H 10/17/20 00:45 Urine Blood 3+ (Negative) H 10/17/20 00:45 Urine Nitrite Negative (Negative) 10/17/20 00:45 Urine Bilirubin 1+ (Negative) H 10/17/20 00:45 Urine Urobilinogen Negative (Negative) 10/17/20 00:45 Ur Leukocyte Esterase Negative (Negative) 10/17/20 00:45 Urine WBC (Auto) 10-30 /hpf (0-5) H 10/17/20 00:45 Urine RBC (Auto) >30 /hpf (0-4) H 10/17/20 00:45 U Hyaline Cast (Auto) 0 /lpf (0-5) 10/17/20 00:45 U Epithel Cells (Auto) >30 /lpf (0-5) H 10/17/20 00:45 Urine Bacteria (Auto) Negative (Negative) 10/17/20 00:45 Ur Renal Epithelial Cell Not Reportable 10/17/20 00:45 Amorphous Sediment Present (None Prsent) A 10/17/20 00:45 Urine Yeast Not Reportable 10/17/20 00:45 Ur Random Creatinine 111.0 mg/dl 10/17/20 10:01 U Random Total Protein 315.4 mg/dl (0-11.9) H 10/17/20 00:45 U Random Total Protein Cancelled 10/17/20 00:45 Ur Random Sodium 36 mmol/L 10/17/20 10:01 Ur Random Urea Nitrogn 333 mg/dl 10/17/20 00:45 Protein/Creatinin Ratio 2.0 (0-0.2) H 10/17/20 00:45 Protein/Creatinin Ratio Cancelled 10/17/20 00:45 Anaplasma Smear See Comment A 10/16/20 23:19 A. phagocytophilum DNA Cancelled 10/16/20 23:19 Anaplasma Comment Pos for Anaplasma 10/16/20 23:19 Lyme Disease IgG Ab Negative (Negative) 10/16/20 23:19 Lyme Disease IgM Ab Negative (Negative) 10/16/20 23:19 COVID-19 Eval Order Covid19 at [facility] 10/17/20 Unknown SARS-CoV-2 (PCR) NEGATIVE (Negative) 10/17/20 Unknown Hep Bs Antigen Neg (Neg) 10/17/20 11:36 Hep Bs Antibody Non-Immune 10/17/20 11:36 Hep Bs Antibody, Quant < 3.10 mIU/mL (>or=10mIU/mL Immune) L 10/17/20 11:36 (1) Acute renal failure Acute renal failure type: unspecified Qualified Code(s): N17.9 - Acute kidney failure, unspecified (2) Hyperlipidemia Hyperlipidemia type: unspecified Qualified Code(s): E78.5 - Hyperlipidemia, unspecified (3) Hypothyroidism Hypothyroidism type: unspecified Qualified Code(s): E03.9 - Hypothyroidism, unspecified (4) Hypertension Hypertension type: unspecified Qualified Code(s): I10 - Essential (primary) hypertension
[2020-10-17] MEDS ORDERED: INSULIN GLARGINE SOLOSTAR 100 UNITS/ML 3 ML PEN SC SCH ×2 (09:00)
[2020-10-17] MEDS ORDERED: HEPARIN SOD 5,000 UNIT/0.5 ML VIAL SQ SCH (09:00)
[2020-10-17] MEDS ORDERED: ASPIRIN 81 MG ECTAB PO SCH (09:00)
[2020-10-17] MEDS ORDERED: Nursing to Pharmacy Communication SCH (09:45)
[2020-10-17] MEDS ORDERED: LACTATED RINGER'S 1,000 ML IV SCH (10:15)
--- NOTE | 2020-10-17 10:25 | Nephrology Consultation ---
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 No postrenal obstruction but urinalysis with 3+ proteinuria, hematuria and pyuria. ADAM could be prerenal vs ATN with 5 days history of decreased p.o. intake, diarrhea however with possible bacteremia, proteinuria and hematuria on UA, cannot exclude possibility for glomerular pathology including postinfectious GN or other glomerular disease on top of underlying CKD. Has been getting IV fluid, blood pressure has been acceptable but remain anuric although there is no significant volume overload at this time. --With rapid worsening of renal function, multiple electrolyte abnormality including worsening metabolic acidosis, hyponatremia and persistent anuria, will schedule for tunnel dialysis catheter and possible dialysis this afternoon. Spoke with Mr. Wilhelm earlier and patient's Arie ) over telephone and explained the need for dialysis. Patient and is agreeable to have the dialysis. Appreciate vascular surgery help with TDC. --will order serology. --dose meds for GFR <10, left arm nephrology precaution. Will follow Thank you for allowing me to participate in your patient's care. It was a pleasure to see Mr. Wilhelm. (2) Metabolic acidosis: (3) Anuria: (4) Hypertension: (5) Diabetes mellitus type 2 with complications: (6) Hyperlipidemia: History of Present Illness Reason for Consultation: Acute kidney injury, Anuria , metabolic acidosis. Attending Physician: Adan Solitario DO History of Present Illness Mr. Wilhelm is a 64-year-old gentleman with past medical history significant for stage IIIB CKD, solitary left kidney after right nephrectomy for renal cell carcinoma, admitted to the hospital with anuric ADAM, diarrhea, febrile illness for a week. Nephrology consult was requested to manage [place]. EMR records reviewed in detail during patient's visit. Mr Wilhelm has stage IIIB CKD, b/l cr 1.7-1.8 with history of unilateral Rt nephrectomy for renal cell carcinoma. Renal function has been relatively stable, has low-grade proteinuria. He presented to [facility] ER with almost a week history of chills, generalized body aches, headache, cough and diarrhea. As his symptom worsened and he noticed decreased urine output over last 2 days he presented to the ER. He was found to have ADAM with creatinine 6.0. eventually he was transferred to monitor any as a direct admit. Repeat lab at [facility] showed creatinine 6.4, metabolic acidosis. CT abdomen pelvis without contrast was negative for postrenal obstruction. Urinalysis with 3+ proteinuria, 3+ hematuria and pyuria. No hyaline cast, granular cast, RBC cast , renal epithelial cells noted on urine sediment exam by laboratory. He received more than 3 L of IV fluid since initial ER visit and currently on normal saline at 100 mL/hour however he remained anuric. Denies any shortness of breath, oxygen saturation 96% on 2 L NC. He was also found to have anemia, thrombocytopenia as well as leukopenia. 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 Has hypertension, diabetes, both seems to be well controlled, has been on losartan 50 mg daily, metoprolol, insulin. Currently he denies any shortness of breath, overall feeling slightly better. repeat labs this morning showed rapid worsening of renal function creatinine 7.5 compared to 6.4 at midnight. Sodium 127, bicarb 14. remained anuric. Allergies Allergy/AdvReac Type Severity Reaction Status Date / Time Sulfa (Sulfonamide Allergy Intermediate RASH AND Verified 10/14/20 15:57 Antibiotics) THROAT SWELLING Home Medications Medication Instructions Recorded Confirmed Type aspirin 81 mg tablet 81 mg PO DAILY tab 12/22/18 10/16/20 History multivitamin 1 tab PO DAILY 12/22/18 10/16/20 History pen needle, diabetic 31 gauge x #50 ea 12/29/18 10/16/20 Rx 5/16" cholecalciferol (vitamin D3) 50 4,000 units PO DAILY tab 01/17/19 10/16/20 History mcg (2,000 unit) tablet metoclopramide HCl 10 mg tablet 10 mg PO BID #180 tab 01/29/20 10/16/20 Rx blood sugar diagnostic See Rx Instructions .ROUTE 02/15/20 10/16/20 Rx .COMPLEX #400 each Humalog KwikPen Insulin 100 See Rx Instructions .ROUTE 03/12/20 10/16/20 Rx unit/mL subcutaneous .COMPLEX #45 ml NS losartan 50 mg tablet See Rx Instructions .ROUTE 04/10/20 10/16/20 Rx .COMPLEX #90 tablet insulin glargine 100 unit/mL 30 unit SUBCUT HS #10 ml 05/05/20 10/16/20 Rx subcutaneous solution metoprolol tartrate 25 mg tablet 25 mg PO DAILY #90 tab 06/11/20 10/16/20 Rx atorvastatin 10 mg tablet 10 mg PO DAILY #90 tab 07/10/20 10/16/20 Rx levothyroxine 50 mcg tablet 50 mcg PO DAILY #90 tab 09/01/20 10/16/20 Rx sildenafil 100 mg tablet 100 mg PO DAILY PRN #20 tab 09/12/20 10/16/20 Rx fluticasone propionate [Flonase 1 sprays INTNAS DAILY PRN 10/16/20 10/16/20 History Allergy Relief] Patient History Medical History (Updated 10/17/20 @ 10:37 by Xin Asencio MD) Anuria Arthritis Benign essential hypertension Chronic kidney disease, stage III (moderate) Diabetes mellitus type 2 with complications Diabetic retinopathy Gastroparesis Hyperlipidemia Hypothyroidism Lumbar disc disease Metabolic acidosis Renal cell carcinoma SNHL (sensorineural hearing loss) Vitamin D deficiency Surgical History History of back surgery (2004) 2005 S/P cholecystectomy S/p nephrectomy (06/2015) 06/2015- right secondary to RCC Family History Sister Breast cancer Mother Ovarian cancer Father Skin cancer Other No family history of adverse response to anesthesia No family history of bleeding disorder Denies family history of Prostate cancer Myocardial infarction Colorectal cancer Social History Smoking Status: Unknown if ever smoked Tobacco Type: Cigarettes and Smokeless Tobacco (Dip or Chew) Age Started Using Tobacco: 20; Age Quit Using Tobacco: 22; Second Hand Exposure: No; Hx Alcohol Use: No Hx Substance Use: No Preferred Language: Ukrainian Communication Ability: Effective Visual Impairment: No Limitations Hearing Ability: Normal Manager Outpatient Required: No Beliefs That Will Affect Care: None marital status: Current Living Situation: Family current occupational status: employed 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 Feels Safe at Home: Yes Childhood Exposure to Second-Hand Smoke: No caffeine: Yes during the past year weight has: remained stable Dental Care, Regularly: No Physical Activity Frequency: Daily Seatbelt Use: always Sunscreen Use: Yes Assistive Devices: None Review of Systems Review of Systems: All systems reviewed & are unremarkable except as noted in Subjective Physical Exam Constitutional: WD/WN, vitals as above well developed and well nourished; no acute distress Eyes: PERRL, conjunctivae normal, anicteric sclerae ENMT: external ear and nose normal, oropharynx normal Ears: no hearing impairment Neck: normal visual inspection and trachea midline Respiratory: normal respiratory effort, lungs clear to auscultation normal respiratory effort and + cough; no respiratory distress Cardiovascular: RRR, no murmur, no edema Gastrointestinal (Abdomen): Inspection/Auscultation: normal bowel sounds Percussion/Palpation: abdomen nontender, no guarding and abdomen not rigid Musculoskeletal: Head/Neck/Chest: head atraumatic Extremities: extremities normal to inspection Skin: no rashes, warm and dry Neurologic: moves all extremities and awake; no focal motor deficits and not confused Psychiatric: A+Ox3, euthymic affect Affect: + anxious affect and + tearful affect Results & Data ([facility]) Vital Signs (Past 12 Hours) Vital Signs Temp Pulse Pulse Resp BP Pulse Ox Pulse Ox 10/17/20 07:58 36.7 C 69 18 120/69 96 10/17/20 07:21 87 10/17/20 04:02 37.3 C 97 H 22 132/72 95 10/17/20 01:09 90 10/16/20 23:25 37.6 C H 97 H 20 154/79 H 90 10/16/20 22:57 88 L 10/16/20 22:38 37.6 C H 97 H 18 154/79 H 90 PG Care Time/CCT Total # of Minutes Spent Total Time Spent with Patient: Total time spent is greater than 50% in coordination of care (as documented) at patient's floor/unit and/or counseling patient: Coding Level of Care Code 31533 Inpt Consult Level 5 Diagnoses Acute renal failure N17.9 Acute renal failure type: unspecified Metabolic acidosis E87.2 Anuria R34 Hypertension I10 Hypertension type: unspecified Diabetes mellitus type 2 with complications E11.8 Hyperlipidemia E78.5 Hyperlipidemia type: unspecified (1) Acute renal failure Acute renal failure type: unspecified Qualified Code(s): N17.9 - Acute kidney failure, unspecified (2) Hyperlipidemia Hyperlipidemia type: unspecified Qualified Code(s): E78.5 - Hyperlipidemia, unspecified (3) Hypertension Hypertension type: unspecified Qualified Code(s): I10 - Essential (primary) hypertension
[2020-10-17 10:40] LABS: Albumin Level 2.2 gm/dl (3.4-5.0); BUN Creatinine Ratio 10.1 (10-20); Calcium 7.5 mg/dl (8.5-10.1); Est GFR (African American) 8.1 ml/min; Phosphorus 4.6 mg/dl (2.5-4.9); Potassium 4.5 mmol/L (3.5-5.1)
[2020-10-17 10:55] LABS: Beta-Hydroxybutyrate 31.65 mg/dl (0.2-2.81)
[2020-10-17] MEDS ORDERED: INSULIN HUMAN REGULAR IV STA (10:59)
[2020-10-17] MEDS: SODIUM CHLORIDE 0.9% 1000ML 1,000 ML IV SCH ×2 (11:07→22:30)
[2020-10-17] MEDS: DOXYCYCLINE HYCLATE 100 MG in DEXTROSE 5% 100 ML IV SCH (11:09)
[2020-10-17] MEDS ORDERED: INSULIN HUMAN REGULAR PER UNIT 10 UNITS in SYRINGE 9.9 ML IV ONE (11:15)
[2020-10-17] MEDS ORDERED: INSULIN HUMAN REGULAR PER UNIT 10 UNITS in SYRINGE 9.9 ML IV STA (12:29)
--- NOTE | 2020-10-17 12:37 | Consultation ---
Date of Consultation October 17, 2020 Assessment & Plan (1) Acute renal failure: Pt to undergo HD catheter insertion today by Dr Shukla. Aware that plt 36. Pt agreeable. Che Forbes Pac assisted due to lack of resident availability and was necessary for positioning, draping, retraction, wound closure deep layers, subcutaneous tissue, and skin closure and was necessary for assisting with the case. Due to his low platelet count and having breadfast this am, will place a temorary catheter today and change it to a permcath next week once platelet count comes up. If it doesn't we will need to transfuse platelets prior to permcath insertion. Acute renal failure type: unspecified Qualified Code(s): N17.9 - Acute kidney failure, unspecified History of Present Illness Reason for Consultation: ADAM, need permcath for HD Attending Physician: Adan Solitario DO History of Present Illness 64 yo m with hx of HTN, DMII, hypothyroidism, hyperlipidemia, renal cell ca s/p R nephrectomy, arthritis, admitted with acute renal failure and possible tick borne illness, seen in consultation today for placement of catheter for HD. Pt admits fatigue/malaise, and anxiety. Pt denies fever, CONCEPCION, chest pain, SOB, cough, abd pain, N/V, rest pain, claudication, other complaints. Allergies Allergy/AdvReac Type Severity Reaction Status Date / Time Sulfa (Sulfonamide Allergy Intermediate RASH AND Verified 10/14/20 15:57 Antibiotics) THROAT SWELLING Home Medications Medication Instructions Recorded Confirmed Type aspirin 81 mg tablet 81 mg PO DAILY tab 12/22/18 10/16/20 History multivitamin 1 tab PO DAILY 12/22/18 10/16/20 History pen needle, diabetic 31 gauge x #50 ea 12/29/18 10/16/20 Rx 5/16" cholecalciferol (vitamin D3) 50 4,000 units PO DAILY tab 01/17/19 10/16/20 History mcg (2,000 unit) tablet metoclopramide HCl 10 mg tablet 10 mg PO BID #180 tab 01/29/20 10/16/20 Rx blood sugar diagnostic See Rx Instructions .ROUTE 02/15/20 10/16/20 Rx .COMPLEX #400 each Humalog KwikPen Insulin 100 See Rx Instructions .ROUTE 03/12/20 10/16/20 Rx unit/mL subcutaneous .COMPLEX #45 ml NS losartan 50 mg tablet See Rx Instructions .ROUTE 04/10/20 10/16/20 Rx .COMPLEX #90 tablet insulin glargine 100 unit/mL 30 unit SUBCUT HS #10 ml 05/05/20 10/16/20 Rx subcutaneous solution metoprolol tartrate 25 mg tablet 25 mg PO DAILY #90 tab 06/11/20 10/16/20 Rx atorvastatin 10 mg tablet 10 mg PO DAILY #90 tab 07/10/20 10/16/20 Rx levothyroxine 50 mcg tablet 50 mcg PO DAILY #90 tab 09/01/20 10/16/20 Rx sildenafil 100 mg tablet 100 mg PO DAILY PRN #20 tab 09/12/20 10/16/20 Rx fluticasone propionate [Flonase 1 sprays INTNAS DAILY PRN 10/16/20 10/16/20 History Allergy Relief] Patient History Medical History Anuria Arthritis Benign essential hypertension Chronic kidney disease, stage III (moderate) Diabetes mellitus type 2 with complications Diabetic retinopathy Gastroparesis Hyperlipidemia Hypothyroidism Lumbar disc disease Metabolic acidosis Renal cell carcinoma SNHL (sensorineural hearing loss) Vitamin D deficiency Surgical History History of back surgery (2004) 2005 S/P cholecystectomy S/p nephrectomy (06/2015) 06/2015- right secondary to RCC Family History Sister Breast cancer Mother Ovarian cancer Father Skin cancer Other No family history of adverse response to anesthesia No family history of bleeding disorder Denies family history of Prostate cancer Myocardial infarction Colorectal cancer Social History Smoking Status: Unknown if ever smoked Tobacco Type: Cigarettes and Smokeless Tobacco (Dip or Chew) Age Started Using Tobacco: 20; Age Quit Using Tobacco: 22; Second Hand Exposure: No; Hx Alcohol Use: No Hx Substance Use: No Preferred Language: Chinese Communication Ability: Effective Visual Impairment: No Limitations Hearing Ability: Normal Track Vehicle Repairer Required: No Beliefs That Will Affect Care: None marital status: Current Living Situation: Family current occupational status: employed 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 How many Children do You have: 1 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 Feels Safe at Home: Yes Childhood Exposure to Second-Hand Smoke: No caffeine: Yes during the past year weight has: remained stable Dental Care, Regularly: No Physical Activity Frequency: Daily Seatbelt Use: always Sunscreen Use: Yes Assistive Devices: None Review of Systems Review of Systems: All systems reviewed & are unremarkable except as noted in HPI & below Physical Exam Constitutional: WD/WN, vitals as above cooperative; not in distress Eyes: PERRL, conjunctivae normal, anicteric sclerae Neck: trachea midline Respiratory: normal respiratory effort, lungs clear to auscultation Auscultation: + diminished lung sounds Cardiovascular: Rate/Rhythm: regular rate and regular rhythm Vessels: posterior tibial pulses present, dorsalis pedis pulses present and radial pulses present; + abnormal peripheral pulses Extremities: normal capillary refill; no edema Gastrointestinal (Abdomen): normal bowel sounds, soft, nontender, no hepatosplenomegaly Musculoskeletal: no cyanosis or clubbing, extremities motor strength 5/5 Skin: no rashes, warm and dry Neurologic: moves all extremities and awake; no focal motor deficits and not confused Psychiatric: Orientation: alert and oriented x 3 Affect: + depressed affect and + anxious affect Results & Data ([facility]) Vital Signs (Past 12 Hours) Vital Signs Temp Pulse Pulse Resp BP Pulse Ox 10/17/20 12:29 36.9 C 74 16 133/71 96 10/17/20 07:58 36.7 C 69 18 120/69 96 10/17/20 07:21 87 10/17/20 04:02 37.3 C 97 H 22 132/72 95 10/17/20 01:09 90
[2020-10-17 12:52] LABS: iSTAT Allen Test Pass; iSTAT Art Bld Gas pCO2 Correct 33 mmHg (35-46); iSTAT Art Bld Gas pH Corrected 7.304 (7.35-7.45); iSTAT Arterial Blood Gas HCO3 17 meg/L (19-24); iSTAT Arterial Blood Gas pCO2 33 mmHg (35-46); iSTAT Arterial Blood Gas pO2 73 mmHg (80-95); iSTAT Arterial Blood Gas pO2 C 73; iSTAT Carbon Dioxide 18 mmol/L (24-31); iSTAT Hematocrit 32 % (42-52); iSTAT Hemoglobin 10.9 g/dl (14.0-18.0); iSTAT Site L Radial; iSTAT Sodium 127 mmol/L (135-144)
[2020-10-17] MEDS ORDERED: ceFAZolin 2000MG 2,000 MG/15 ML SYR IV ONE (13:00)
[2020-10-17] MEDS ORDERED: MIDAZOLAM HCL 1 MG/ML 2ML VIAL ONE (13:25)
[2020-10-17] MEDS ORDERED: fentaNYL citrate 100 MCG/2 ML VIAL ONE (13:25)
--- NOTE | 2020-10-17 13:43 | Communication Note ---
Date of Service: October 17, 2020 We will check his platelet count on Tuesday. If his platelet count remains low then we will transfuse platelets prior to insertion of a PermCath on Tuesday.
[2020-10-17 13:49] LABS: BUN Creatinine Ratio 10.2 (10-20); Calcium 7.2 mg/dl (8.5-10.1); Creatinine Clr Calc Pharmacy 11.6 ml/min; Est GFR (African American) 7.8 ml/min; Est GFR (Non-African American) 6.8 ml/min; Potassium 4.7 mmol/L (3.5-5.1)
[2020-10-17 13:50] LABS: Hepatitis B Surface Ab Quant < 3.10 mIU/mL (>or=10mIU/mL Immune); Hepatitis B Surface Antibody Non-Immune
[2020-10-17] MEDS ORDERED: HEPARIN SOD (PORCINE) 5,000 UNITS/ML VIAL ONE (13:52)
[2020-10-17] MEDS ORDERED: LIDOCAINE 1% LOCAL 20 ML VIAL ONE ×2 (13:52→14:05)
[2020-10-17 14:00] LABS: Hepatitis B Surf Ag Rflx Conf Neg (Neg)
--- NOTE | 2020-10-17 14:28 | Operative Report ---
Post Operative Report Pre & Post Diagnosis Operation Date: 10/17/20 11:30 Pre-Op Diagnosis: Acute Kidney Injury Post-Op Diagnosis: Acute Kidney Injury Operation Date: 10/20/20 10:50 <No data on this case meets the specified criteria> I identified the patient and participated in the time-out.: Yes Procedure Operation Date: 10/17/20 11:30 Actual Procedures p Insertion of Temporary Dialysis Catheter, Ultrasound Localization of Left Femoral Vein, Fluoroscopy for Positioning (Left) - Michael Shukla MD Operation Date: 10/20/20 10:50 <No data on this case meets the specified criteria> Surgeon Michael Shukla MD Aircraft Instrument Repairer none Estimated Blood Loss 5 Findings Consistent with Post-Op Diagnosis Specimens none Anesthesia Type Local Complications none Disposition Accompanied Patient To Recovery: No Disposition: Recovery Room Indications This is a 64-year-old male who was admitted with acute kidney injury in need of dialysis. Temporary catheter was recommended due to the fact that he did have breakfast today and his platelet count is 36,000. I have discussed the risks options and benefits of the procedure with the patient. The patient understands the risks options and benefits and agrees to the procedure. Description of Procedure Patient was taken to the angio suite and placed in the supine position. The right groin was prepped and draped in a sterile manner. The patient was identified and a timeout performed. Local anesthesia was then administered to the appropriate areas of the right groin. Ultrasound was then used to locate the femoral vein. The vein was difficult to see. What appeared to be the vein was extremely small. An attempt was made to puncture the vein. We did get backbleeding however the wire could not pass. We decided to use the left groin at that point. Pressure was applied to the right groin. Sterile dressing was applied. The left groin was then prepped and draped in a sterile manner. Local anesthesia was then administered to the appropriate areas of the left groin. Ultrasound was then used to locate the left common femoral vein. The vein compressed easily, had no filing defects, and was patent. The vein was then punctured under direct ultrasound imaging. A guidewire was then passed centrally under fluoroscopic imaging. The puncture site was then dilated and a 24 cm Mahurkar catheter was inserted. The catheter was then sutured in place using nylon sutures. Both ports aspirated and flushed easily and were then packed with heparin. A sterile dressing was applied to the catheter. The patient left the operation room in satisfactory condition and tolerated the procedure well. All needle and sponge counts were correct at the end of the procedure. I attest to the content of the Intraoperative Record and any orders documented therein. Any exceptions are noted below.
[2020-10-17 14:36] LABS: Beta-Hydroxybutyrate 24.51 mg/dl (0.2-2.81)
[2020-10-17] MEDS: INSULIN GLARGINE SOLOSTAR 100 UNITS/ML 3 ML PEN SC SCH (14:52)
--- NOTE | 2020-10-17 16:06 | Billing Data ---
Date of Service October 17, 2020 Coding Level of Care Code 46454 Subseq Hosp Care Lvl 3
[2020-10-17 17:50] LABS: Calcium 7.5 mg/dl (8.5-10.1); Creatinine Clr Calc Pharmacy 11.2 ml/min; Est GFR (African American) 7.4 ml/min; Est GFR (Non-African American) 6.4 ml/min; Potassium 4.1 mmol/L (3.5-5.1)
[2020-10-17 22:58] LABS: BUN Creatinine Ratio 9.1 (10-20); Calcium 7.3 mg/dl (8.5-10.1); Creatinine Clr Calc Pharmacy 15.1 ml/min; Est GFR (African American) 10.7 ml/min; Est GFR (Non-African American) 9.2 ml/min; Potassium 3.6 mmol/L (3.5-5.1)
[2020-10-18] MEDS: DOXYCYCLINE HYCLATE 100 MG in DEXTROSE 5% 100 ML IV SCH ×2 (00:13→12:26)
--- NOTE | 2020-10-18 06:24 | Electrocardiogram Report ---
Test Reason : Blood Pressure : / mmHG Vent. Rate : 082 BPM Atrial Rate : 082 BPM P-R Int : 158 ms QRS Dur : 094 ms QT Int : 360 ms P-R-T Axes : 012 008 033 degrees QTc Int : 420 ms Normal sinus rhythm Low voltage QRS Possible Inferior infarct , age undetermined Abnormal ECG No previous ECGs available Confirmed by Ivan Bearden ([id number]) on 10/18/2020 6:24:06 AM Referred By: Ernie Gomez Confirmed By:Ivan Bearden
[2020-10-18 06:48] LABS: Albumin Level 1.9 gm/dl (3.4-5.0); BUN Creatinine Ratio 9.7 (10-20); Calcium 7.5 mg/dl (8.5-10.1); Creatinine Clr Calc Pharmacy 13.2 ml/min; Est GFR (African American) 9.2 ml/min; Est GFR (Non-African American) 7.9 ml/min; Phosphorus 3.6 mg/dl (2.5-4.9); Potassium 3.8 mmol/L (3.5-5.1)
[2020-10-18] MEDS: ONDANSETRON INJ 2 MG/ML 2 ML VIAL IV PRN ×2 (08:35→19:48)
[2020-10-18] MEDS: LEVOTHYROXINE SODIUM 50 MCG TABLET PO SCH (08:38)
[2020-10-18] MEDS: METOPROLOL TARTRATE 25 MG TAB PO SCH (08:38)
[2020-10-18] MEDS: MULTIVITAMIN TAB PO SCH (08:39)
[2020-10-18] MEDS: ATORVASTATIN 10 MG TAB PO SCH (08:39)
[2020-10-18] MEDS: INSULIN ASPART 100 UNITS/ML 3 ML PEN SC SCH ×4 (08:39→21:12)
[2020-10-18 10:22] LABS: Partial Thromboplastin Ratio 1.1; Prothrombin Time 10.3 Seconds (9.0-12.0)
[2020-10-18 10:30] LABS: Hematocrit (blood only) 33.8 % (42-52); Hemoglobin 11.3 g/dL (14.0-18.0); Mean Corpuscular Hgb Conc 33.4 g/dL (32-36); Mean Corpuscular Volume 92.9 fL (80-100); Mean Platelet Volume 14.2 fL (7.4-10.4); Platelet Count 62 K/uL (130-400); RDW Coefficient of Variation 14.3 % (11.5-14.5); RDW Standard Deviation 48.6 fL (36.4-46.3); Red Blood Count 3.64 M/uL (4.7-6.1); White Blood Count 3.91 K/uL (4.8-10.8)
[2020-10-18 10:31] LABS: Basophils # (auto) 0.16 K/uL (0-0.2); Basophils % (auto) 4.1 %; Echinocytes 1+; Eosinophils # (auto) 0.01 K/uL (0-0.5); Eosinophils % (auto) 0.3 %; Immature Granulocytes # (auto) 0.01 K/uL (0.00-0.02); Immature Granulocytes % (auto) 0.3 %; Lymphocytes # (auto) 1.15 K/uL (1.2-3.4); Lymphocytes % (auto) 29.4 %; Monocytes # (auto) 0.63 K/uL (0.11-0.59); Monocytes % (auto) 16.1 %; Neutrophils # (auto) 1.95 K/uL (1.4-6.5); Neutrophils % (auto) 49.8 %; Platelet Estimate Decreased (Normal)
--- NOTE | 2020-10-18 11:43 | Nephrology Progress Note ---
Date of Service October 18, 2020 Assessment & Plan (1) Acute renal failure: Remains relatively oliguric. Clinical presentation consistent with ATN in setting of anaplasmosis. Urine microscopy notable for microscopic hematuria + protein. Serologic GN evaluation pending. No renal recovery noted. Started HD yesterday for clearance. Temporary femoral catheter placed 10/18. First HD treatment 10/18. Permcath deferred due to thrombocytopenia and aspirin. Orders for HD today entered into EMR and reviewed with nurse. Document I/O's and repeat metabolic profile tomorrow AM. (2) Hypertension: BP and volume status acceptable. UF goal ~1 L. 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 Medical history notable for DM and hypertension. Medications appropriately dosed for kidney dysfunction. (4) Anaplasmosis: Plan of care reviewed with hospitalist this AM. Remains on doxycycline. Admission and Anticipated Discharge Date Admission Date: October 16, 2020 Subjective No acute events overnight. HD completed yesterday -- 2 hrs without complications. Femoral catheter functioning well. Review of Systems Review of Systems: All systems reviewed & are unremarkable except as noted in HPI & below Physical Exam 2 Constitutional: well developed; no acute distress Eyes: no scleral abnormality and no corneal abnormality ENMT: Mouth: no oral mucosal abnormality and oral mucous membranes not dry Neck: normal visual inspection and trachea midline Respiratory: normal respiratory effort Auscultation: lungs clear to auscultation bilaterally Cardiovascular: Rate/Rhythm: regular rate Heart Sounds: normal S1 and normal S2 Extremities: no edema Musculoskeletal: Extremities: no cyanosis and no clubbing Skin: normal turgor; no lesions Neurologic: Motor/Sensory: no tremor and no asterixis Psychiatric: Orientation: alert and oriented x 3 Results & Data ([facility]) Vital Signs (Past 12 Hours) Vital Signs Temp Pulse Pulse Resp BP Pulse Ox 10/18/20 08:46 36.7 C 70 16 134/84 92 10/18/20 07:54 68 10/18/20 03:57 36.7 C 87 18 108/66 93 10/17/20 23:46 36.5 C 74 16 129/75 92 Laboratory Results Laboratory Results - last 24 hr 10/16/20 10/17/20 10/17/20 23:19 10:01 11:36 WBC RBC Hgb POC Hgb Hct POC Hct MCV MCH MCHC RDW Std Deviation RDW Coeff of Rony Plt Count MPV Immature Gran % (Auto) Neut % (Auto) Lymph % (Auto) Dane % (Auto) Eos % (Auto) Baso % (Auto) Neut # (Auto) Lymph # (Auto) Dane # (Auto) Eos # (Auto) Baso # (Auto) Immature Gran # (Auto) Platelet Estimate Echinocytes Peripher Smr Path Cons PT INR APTT PTT Ratio Sample Site POC pH POC pCO2 POC pO2 POC HCO3 POC Total CO2 POC Base Excess ABG pH (Temp Correct) ABG pCO2 (Temp Corrct POC ABG pO2 at Pt Temp POC ABG O2 Sat Maik Test O2 Delivery Device POC Sodium Sodium POC Potassium Potassium Chloride Carbon Dioxide Anion Gap BUN Creatinine Est Cr Clr Drug Dosing Est GFR ( Amer) Est GFR (Non-Af Amer) BUN/Creatinine Ratio Glucose POC Glucose Calcium Phosphorus Total Protein (PEP) Pending Albumin Albumin (PEP) Pending Hizhb-9-Qiehubeef Pending Hqdrh-6-Wpztvxtox Pending Txqr-6-Okflupub Pending Itxm-1-Vcmhqcbv Pending Gamma Globulins Pending Monoclonal Peak 3 Pending Ser Monoclonl Protein Pending Ser Monoclonal Prot 2 Pending PEP Interpretation Pending Beta-Hydroxybutyric Acd U Random Total Protein Pending Ur Creatinine mg/dL Pending Protein/Creatinin Ratio Pending Urine Albumin (%) Pending U Lqjkg-0-Cjomvjad (%) Pending U Mlcow-5-Hbywuvfn (%) Pending U Beta Globulin (%) Pending U Gamma Globulin (%) Pending U Abnormal Prot Band 1 Pending U Abnormal Prot Band 2 Pending U Abnormal Prot Band 3 Pending Urine PEP Interpret Pending Anti-Proteinase 3 Pending Anti-Myeloperoxidase Pending ANCA Pending Glomerular Base Memb Ab Pending Complement C3 Complement C4 Free Redrock LC, Quant Pending Free Lambda LC, Quant Pending Free Redrock/Lambda Ratio Pending COVID-19 Eval Order SARS-CoV-2 (PCR) Hep Bs Antigen Hep Bs Antibody Hep Bs Antibody, Quant Hep B Core IgM Ab 10/17/20 10/17/20 10/17/20 11:36 11:36 11:36 WBC RBC Hgb POC Hgb Hct POC Hct MCV MCH MCHC RDW Std Deviation RDW Coeff of Rony Plt Count MPV Immature Gran % (Auto) Neut % (Auto) Lymph % (Auto) Dane % (Auto) Eos % (Auto) Baso % (Auto) Neut # (Auto) Lymph # (Auto) Dane # (Auto) Eos # (Auto) Baso # (Auto) Immature Gran # (Auto) Platelet Estimate Echinocytes Peripher Smr Path Cons PT INR APTT PTT Ratio Sample Site POC pH POC pCO2 POC pO2 POC HCO3 POC Total CO2 POC Base Excess ABG pH (Temp Correct) ABG pCO2 (Temp Corrct POC ABG pO2 at Pt Temp POC ABG O2 Sat Maik Test O2 Delivery Device POC Sodium Sodium POC Potassium Potassium Chloride Carbon Dioxide Anion Gap BUN Creatinine Est Cr Clr Drug Dosing Est GFR ( Amer) Est GFR (Non-Af Amer) BUN/Creatinine Ratio Glucose POC Glucose Calcium Phosphorus Total Protein (PEP) Albumin Albumin (PEP) Ebmbl-4-Mlbcwvznt Qnwem-2-Lkgicyhnc Cbih-9-Lugumirk Qzex-1-Extwywsw Gamma Globulins Monoclonal Peak 3 Ser Monoclonl Protein Ser Monoclonal Prot 2 PEP Interpretation Beta-Hydroxybutyric Acd U Random Total Protein Ur Creatinine mg/dL Protein/Creatinin Ratio Urine Albumin (%) U Ytrli-5-Mxisabxj (%) U Bwfnj-5-Oruhhsyu (%) U Beta Globulin (%) U Gamma Globulin (%) U Abnormal Prot Band 1 U Abnormal Prot Band 2 U Abnormal Prot Band 3 Urine PEP Interpret Anti-Proteinase 3 Anti-Myeloperoxidase ANCA Glomerular Base Memb Ab Complement C3 Pending Complement C4 Pending Free Redrock LC, Quant Free Lambda LC, Quant Free Redrock/Lambda Ratio COVID-19 Eval Order SARS-CoV-2 (PCR) Hep Bs Antigen Neg Hep Bs Antibody Non-Immune Hep Bs Antibody, Quant < 3.10 L Hep B Core IgM Ab Pending 10/17/20 10/17/20 10/17/20 11:36 12:19 12:21 WBC RBC Hgb POC Hgb Hct POC Hct MCV MCH MCHC RDW Std Deviation RDW Coeff of Rony Plt Count MPV Immature Gran % (Auto) Neut % (Auto) Lymph % (Auto) Dane % (Auto) Eos % (Auto) Baso % (Auto) Neut # (Auto) Lymph # (Auto) Dane # (Auto) Eos # (Auto) Baso # (Auto) Immature Gran # (Auto) Platelet Estimate Echinocytes Peripher Smr Path Cons PT INR APTT PTT Ratio Sample Site POC pH POC pCO2 POC pO2 POC HCO3 POC Total CO2 POC Base Excess ABG pH (Temp Correct) ABG pCO2 (Temp Corrct POC ABG pO2 at Pt Temp POC ABG O2 Sat Maik Test O2 Delivery Device POC Sodium Sodium 129 L POC Potassium Potassium 4.7 Chloride 98 Carbon Dioxide 18 L Anion Gap 13.0 H BUN 79 H Creatinine 7.75 H* Est Cr Clr Drug Dosing 11.6 Est GFR ( Amer) 7.8 Est GFR (Non-Af Amer) 6.8 BUN/Creatinine Ratio 10.2 Glucose 363 H* POC Glucose 311 H* 307 H* Calcium 7.2 L Phosphorus Total Protein (PEP) Albumin Albumin (PEP) Sbtcz-8-Zujdxanle Pgyqe-2-Qxrbyljzd Gocu-8-Ggatuqqv Qlja-4-Zsazsraq Gamma Globulins Monoclonal Peak 3 Ser Monoclonl Protein Ser Monoclonal Prot 2 PEP Interpretation Beta-Hydroxybutyric Acd 24.51 H U Random Total Protein Ur Creatinine mg/dL Protein/Creatinin Ratio Urine Albumin (%) U Ftspd-2-Cldcwibn (%) U Niuci-3-Zevsrvsu (%) U Beta Globulin (%) U Gamma Globulin (%) U Abnormal Prot Band 1 U Abnormal Prot Band 2 U Abnormal Prot Band 3 Urine PEP Interpret Anti-Proteinase 3 Anti-Myeloperoxidase ANCA Glomerular Base Memb Ab Complement C3 Complement C4 Free Redrock LC, Quant Free Lambda LC, Quant Free Redrock/Lambda Ratio COVID-19 Eval Order SARS-CoV-2 (PCR) Hep Bs Antigen Hep Bs Antibody Hep Bs Antibody, Quant Hep B Core IgM Ab 10/17/20 10/17/20 10/17/20 12:39 13:39 14:51 WBC RBC Hgb POC Hgb 10.9 L Hct POC Hct 32 L MCV MCH MCHC RDW Std Deviation RDW Coeff of Rony Plt Count MPV Immature Gran % (Auto) Neut % (Auto) Lymph % (Auto) Dane % (Auto) Eos % (Auto) Baso % (Auto) Neut # (Auto) Lymph # (Auto) Dane # (Auto) Eos # (Auto) Baso # (Auto) Immature Gran # (Auto) Platelet Estimate Echinocytes Peripher Smr Path Cons PT INR APTT PTT Ratio Sample Site L Radial POC pH 7.30 L POC pCO2 33 L POC pO2 73 L POC HCO3 17 L POC Total CO2 18 L POC Base Excess -10.0 L ABG pH (Temp Correct) 7.304 L ABG pCO2 (Temp Corrct 33 L POC ABG pO2 at Pt Temp 73 POC ABG O2 Sat 93.0 Maik Test Pass O2 Delivery Device Room Air POC Sodium 127 L Sodium POC Potassium 4.0 Potassium Chloride Carbon Dioxide Anion Gap BUN Creatinine Est Cr Clr Drug Dosing Est GFR ( Amer) Est GFR (Non-Af Amer) BUN/Creatinine Ratio Glucose POC Glucose 238 H 214 H Calcium Phosphorus Total Protein (PEP) Albumin Albumin (PEP) Cgcdg-1-Gwshepjxn Pnqia-8-Stoefpkax Snhp-0-Guzhhtzd Jfhk-5-Qagzdwye Gamma Globulins Monoclonal Peak 3 Ser Monoclonl Protein Ser Monoclonal Prot 2 PEP Interpretation Beta-Hydroxybutyric Acd U Random Total Protein Ur Creatinine mg/dL Protein/Creatinin Ratio Urine Albumin (%) U Kuvsc-7-Rsqvxymr (%) U Rnfnm-8-Zswienjz (%) U Beta Globulin (%) U Gamma Globulin (%) U Abnormal Prot Band 1 U Abnormal Prot Band 2 U Abnormal Prot Band 3 Urine PEP Interpret Anti-Proteinase 3 Anti-Myeloperoxidase ANCA Glomerular Base Memb Ab Complement C3 Complement C4 Free Redrock LC, Quant Free Lambda LC, Quant Free Redrock/Lambda Ratio COVID-19 Eval Order SARS-CoV-2 (PCR) Hep Bs Antigen Hep Bs Antibody Hep Bs Antibody, Quant Hep B Core IgM Ab 10/17/20 10/17/20 10/17/20 16:39 16:48 21:00 WBC RBC Hgb POC Hgb Hct POC Hct MCV MCH MCHC RDW Std Deviation RDW Coeff of Rony Plt Count MPV Immature Gran % (Auto) Neut % (Auto) Lymph % (Auto) Dane % (Auto) Eos % (Auto) Baso % (Auto) Neut # (Auto) Lymph # (Auto) Dane # (Auto) Eos # (Auto) Baso # (Auto) Immature Gran # (Auto) Platelet Estimate Echinocytes Peripher Smr Path Cons PT INR APTT PTT Ratio Sample Site POC pH POC pCO2 POC pO2 POC HCO3 POC Total CO2 POC Base Excess ABG pH (Temp Correct) ABG pCO2 (Temp Corrct POC ABG pO2 at Pt Temp POC ABG O2 Sat Maik Test O2 Delivery Device POC Sodium Sodium 128 L POC Potassium Potassium 4.1 Chloride 98 Carbon Dioxide 20 L Anion Gap 10.0 BUN 80 H Creatinine 8.08 H* D Est Cr Clr Drug Dosing 11.2 Est GFR ( Amer) 7.4 Est GFR (Non-Af Amer) 6.4 BUN/Creatinine Ratio 10.0 Glucose 220 H POC Glucose 236 H 179 H Calcium 7.5 L Phosphorus Total Protein (PEP) Albumin Albumin (PEP) Ydhez-3-Audirzuyl Vjwwr-1-Uwctuovsf Zpef-2-Mgmtgudc Dfmh-8-Yythszhn Gamma Globulins Monoclonal Peak 3 Ser Monoclonl Protein Ser Monoclonal Prot 2 PEP Interpretation Beta-Hydroxybutyric Acd U Random Total Protein Ur Creatinine mg/dL Protein/Creatinin Ratio Urine Albumin (%) U Lgdpu-5-Pzeslfhf (%) U Pclij-5-Bkgjrygo (%) U Beta Globulin (%) U Gamma Globulin (%) U Abnormal Prot Band 1 U Abnormal Prot Band 2 U Abnormal Prot Band 3 Urine PEP Interpret Anti-Proteinase 3 Anti-Myeloperoxidase ANCA Glomerular Base Memb Ab Complement C3 Complement C4 Free Redrock LC, Quant Free Lambda LC, Quant Free Redrock/Lambda Ratio COVID-19 Eval Order SARS-CoV-2 (PCR) Hep Bs Antigen Hep Bs Antibody Hep Bs Antibody, Quant Hep B Core IgM Ab 10/17/20 10/17/20 10/17/20 22:14 Unknown Unknown WBC RBC Hgb POC Hgb Hct POC Hct MCV MCH MCHC RDW Std Deviation RDW Coeff of Rony Plt Count MPV Immature Gran % (Auto) Neut % (Auto) Lymph % (Auto) Dane % (Auto) Eos % (Auto) Baso % (Auto) Neut # (Auto) Lymph # (Auto) Dane # (Auto) Eos # (Auto) Baso # (Auto) Immature Gran # (Auto) Platelet Estimate Echinocytes Peripher Smr Path Cons PT INR APTT PTT Ratio Sample Site POC pH POC pCO2 POC pO2 POC HCO3 POC Total CO2 POC Base Excess ABG pH (Temp Correct) ABG pCO2 (Temp Corrct POC ABG pO2 at Pt Temp POC ABG O2 Sat Maik Test O2 Delivery Device POC Sodium Sodium 134 L POC Potassium Potassium 3.6 Chloride 101 Carbon Dioxide 25 Anion Gap 8.0 BUN 55 H Creatinine 5.99 H* D Est Cr Clr Drug Dosing 15.1 Est GFR ( Amer) 10.7 Est GFR (Non-Af Amer) 9.2 BUN/Creatinine Ratio 9.1 L Glucose 144 H POC Glucose Calcium 7.3 L Phosphorus Total Protein (PEP) Albumin Albumin (PEP) Fgkut-7-Nlsqgsxpo Npvoi-1-Leauyzfkl Bdnm-8-Zfzfpruy Wsud-9-Wqtpkuff Gamma Globulins Monoclonal Peak 3 Ser Monoclonl Protein Ser Monoclonal Prot 2 PEP Interpretation Beta-Hydroxybutyric Acd U Random Total Protein Ur Creatinine mg/dL Protein/Creatinin Ratio Urine Albumin (%) U Rnswx-4-Lvtgqero (%) U Kzscs-9-Dzrioluw (%) U Beta Globulin (%) U Gamma Globulin (%) U Abnormal Prot Band 1 U Abnormal Prot Band 2 U Abnormal Prot Band 3 Urine PEP Interpret Anti-Proteinase 3 Anti-Myeloperoxidase ANCA Glomerular Base Memb Ab Complement C3 Complement C4 Free Redrock LC, Quant Free Lambda LC, Quant Free Redrock/Lambda Ratio COVID-19 Eval Order Covid19 at [facility] SARS-CoV-2 (PCR) NEGATIVE Hep Bs Antigen Hep Bs Antibody Hep Bs Antibody, Quant Hep B Core IgM Ab 10/18/20 10/18/20 10/18/20 05:39 05:39 05:45 WBC 3.91 L RBC 3.64 L Hgb 11.3 L POC Hgb Hct 33.8 L POC Hct MCV 92.9 MCH 31.0 MCHC 33.4 RDW Std Deviation 48.6 H RDW Coeff of Rony 14.3 Plt Count 62 L D MPV 14.2 H Immature Gran % (Auto) 0.3 Neut % (Auto) 49.8 Lymph % (Auto) 29.4 Dane % (Auto) 16.1 Eos % (Auto) 0.3 Baso % (Auto) 4.1 Neut # (Auto) 1.95 Lymph # (Auto) 1.15 L Dane # (Auto) 0.63 H Eos # (Auto) 0.01 Baso # (Auto) 0.16 Immature Gran # (Auto) 0.01 Platelet Estimate Decreased L Echinocytes 1+ Peripher Smr Path Cons PT INR APTT PTT Ratio Sample Site POC pH POC pCO2 POC pO2 POC HCO3 POC Total CO2 POC Base Excess ABG pH (Temp Correct) ABG pCO2 (Temp Corrct POC ABG pO2 at Pt Temp POC ABG O2 Sat Maik Test O2 Delivery Device POC Sodium Sodium 134 L POC Potassium Potassium 3.8 Chloride 103 Carbon Dioxide 23 Anion Gap 8.0 BUN 66 H Creatinine 6.81 H* D Est Cr Clr Drug Dosing 13.2 Est GFR ( Amer) 9.2 Est GFR (Non-Af Amer) 7.9 BUN/Creatinine Ratio 9.7 L Glucose 142 H POC Glucose Calcium 7.5 L Phosphorus 3.6 D Total Protein (PEP) Pending Albumin 1.9 L Albumin (PEP) Pending Lurld-6-Gphlrgsuv Pending Firow-3-Wkzfqqlcr Pending Nugm-5-Qlviictl Pending Igxi-9-Pprbxwvx Pending Gamma Globulins Pending Monoclonal Peak 3 Pending Ser Monoclonl Protein Pending Ser Monoclonal Prot 2 Pending PEP Interpretation Pending Beta-Hydroxybutyric Acd U Random Total Protein Ur Creatinine mg/dL Protein/Creatinin Ratio Urine Albumin (%) U Kwubs-3-Ewrfqqmy (%) U Pakbr-7-Nithfnzz (%) U Beta Globulin (%) U Gamma Globulin (%) U Abnormal Prot Band 1 U Abnormal Prot Band 2 U Abnormal Prot Band 3 Urine PEP Interpret Anti-Proteinase 3 Anti-Myeloperoxidase ANCA Glomerular Base Memb Ab Complement C3 Complement C4 Free Redrock LC, Quant Free Lambda LC, Quant Free Redrock/Lambda Ratio COVID-19 Eval Order SARS-CoV-2 (PCR) Hep Bs Antigen Hep Bs Antibody Hep Bs Antibody, Quant Hep B Core IgM Ab 10/18/20 10/18/20 10/18/20 08:07 10:00 11:34 WBC RBC Hgb POC Hgb Hct POC Hct MCV MCH MCHC RDW Std Deviation RDW Coeff of Rony Plt Count MPV Immature Gran % (Auto) Neut % (Auto) Lymph % (Auto) Dane % (Auto) Eos % (Auto) Baso % (Auto) Neut # (Auto) Lymph # (Auto) Dane # (Auto) Eos # (Auto) Baso # (Auto) Immature Gran # (Auto) Platelet Estimate Echinocytes Peripher Smr Path Cons PT 10.3 INR 1.0 APTT 29.0 PTT Ratio 1.1 Sample Site POC pH POC pCO2 POC pO2 POC HCO3 POC Total CO2 POC Base Excess ABG pH (Temp Correct) ABG pCO2 (Temp Corrct POC ABG pO2 at Pt Temp POC ABG O2 Sat Maik Test O2 Delivery Device POC Sodium Sodium POC Potassium Potassium Chloride Carbon Dioxide Anion Gap BUN Creatinine Est Cr Clr Drug Dosing Est GFR ( Amer) Est GFR (Non-Af Amer) BUN/Creatinine Ratio Glucose POC Glucose 146 H 196 H Calcium Phosphorus Total Protein (PEP) Albumin Albumin (PEP) Wufzy-0-Vkdduouud Odcwj-5-Vaelkmule Xpgx-2-Sjvoeyxu Ediy-1-Dqokwhmf Gamma Globulins Monoclonal Peak 3 Ser Monoclonl Protein Ser Monoclonal Prot 2 PEP Interpretation Beta-Hydroxybutyric Acd U Random Total Protein Ur Creatinine mg/dL Protein/Creatinin Ratio Urine Albumin (%) U Czowg-3-Nvyadnks (%) U Dbzic-7-Qhbbipqn (%) U Beta Globulin (%) U Gamma Globulin (%) U Abnormal Prot Band 1 U Abnormal Prot Band 2 U Abnormal Prot Band 3 Urine PEP Interpret Anti-Proteinase 3 Anti-Myeloperoxidase ANCA Glomerular Base Memb Ab Complement C3 Complement C4 Free Redrock LC, Quant Free Lambda LC, Quant Free Redrock/Lambda Ratio COVID-19 Eval Order SARS-CoV-2 (PCR) Hep Bs Antigen Hep Bs Antibody Hep Bs Antibody, Quant Hep B Core IgM Ab PG Care Time/CCT Total # of Minutes Spent Total Time Spent with Patient: Total time spent is greater than 50% in coordination of care (as documented) at patient's floor/unit and/or counseling patient: Coding Level of Care Code 43324 Subseq Hosp Care Lvl 3 Diagnoses Acute renal failure N17.9 Acute renal failure type: unspecified Hypertension I10 Hypertension type: unspecified Chronic kidney disease, stage III (moderate) N18.3 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
--- NOTE | 2020-10-18 12:14 | Hospitalist Progress Note ---
Date of Service October 18, 2020 Assessment & Plan (1) Acute renal failure: 64 yo M Hx renal cell carcinoma s/p right nephrectomy in 2013, HTN, HLD, hypothyroidism, DM2 on insulin therapy admitted for acute renal failure with suspected tick-borne infection. Acute renal failure, due to anaplasmosis septic hypovolemia, Hx right nephrectomy for RCC - History of radical HALN R kidney and adrenal gland [place] [facility] [place] with negative margins. . - Found to have creatinine 6 (baseline 1.7) with BUN/Cr ratio of 10. - CTAP negative - Urine lytes showing evidence of intrinsic damage. complement levels and antibodies pending. - Mcneill placed to monitor strict ins and outs. - appreciate nephrology's recommendations - temporary dialysis catheter placed, dialysis on 10/17, 10/18 - permacath placement in OR scheduled for 10/20 pending platelet stabilization - PCU for cardiac monitoring. DKA, Metabolic Acidosis without anion gap on IDDM2 - B-OH elevated to 34, glucose 400s this am, persistently 300s through morning into afternoon despite novolog coverage and being NPO - missed 30u lantus on admission, now re-corrected with daytime dose of 30 u lantus - received multiple doses of regular insulin 10 mg IV to catch up with sugars and bring down control. 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 Patient had GB removed several years ago. HTN, HLD: - Continue metoprolol and statin. - Hold ARB in setting of ARF. Hypothyroidism: - Continue levothyroxine. Code Status: FULL CODE FEN: DM2 diet DVT ppx: SCDs, no chemoppx given plts 40 Dispo: PCU (2) Hypertension: (3) Hypothyroidism: (4) Hyperlipidemia: (5) Diabetes mellitus type 2 with complications: Admission and Anticipated Discharge Date Admission Date: October 16, 2020 Supervising Physician Co-Signing Physician Notes I personally saw and examined the patient. I verified all jovel points and agree with Dr Millard, resident physician with the following exceptions and/or additions: Generally fatigued but much improved since admission. Minimal urine output. Mcneill cath in place. O/E Chest bibasal decreased air sounds ADAM - appreciate nephrology management with dialysis DKA - now resolved Anaplasmosis - doxycycline 100mg IV BID Subjective Not feeling particularly well this morning. thoroughly fatigued from dialysis last night. no new symptoms. continues to be relatively anuric. discussed being on dialysis for weeks - months until full recuperation from ARF. Review of Systems Constitutional: + fatigue; no fever, no chills and no sweats Respiratory: no cough and no dyspnea Cardiovascular: no chest pain and no dyspnea on exertion Gastrointestinal: no nausea and no vomiting Neurologic: no tingling and no headache(s) Physical Exam Physical Exam: Constitutional: fatigued appearing Eyes: EOMI, pupils equal and reactive bilaterally, no scleral icterus Cardiac: RRR, no murmurs, gallops or rubs. Normal S1, S2 Pulm: CTA BL, no wheezes, rhonchi, crackles or rubs, moving air well throughout both lungs Abd: soft, nontender, nondistended, normal bowel sounds, no rebound or guarding Extremities: 2+ peripheral pulses, no edema Neuro: no focal deficits, moving all 4 limbs, A&Ox3 Results & Data Results & Data ([facility]) Vital Signs (Past 12 Hours) Vital Signs Temp Pulse Pulse Resp BP Pulse Ox 10/18/20 08:46 36.7 C 70 16 134/84 92 10/18/20 07:54 68 10/18/20 03:57 36.7 C 87 18 108/66 93 Laboratory Results WBC 3.91 K/uL (4.8-10.8) L 10/18/20 05:45 RBC 3.64 M/uL (4.7-6.1) L 10/18/20 05:45 Hgb 11.3 g/dL (14.0-18.0) L 10/18/20 05:45 POC Hgb 10.9 g/dl (14.0-18.0) L 10/17/20 12:39 Hct 33.8 % (42-52) L 10/18/20 05:45 POC Hct 32 % (42-52) L 10/17/20 12:39 MCV 92.9 fL (80-100) 10/18/20 05:45 MCH 31.0 pg (25-34) 10/18/20 05:45 MCHC 33.4 g/dL (32-36) 10/18/20 05:45 RDW Std Deviation 48.6 fL (36.4-46.3) H 10/18/20 05:45 RDW Coeff of Rony 14.3 % (11.5-14.5) 10/18/20 05:45 Plt Count 62 K/uL (130-400) L D 10/18/20 05:45 MPV 14.2 fL (7.4-10.4) H 10/18/20 05:45 Immature Gran % (Auto) 0.3 % 10/18/20 05:45 Neut % (Auto) 49.8 % 10/18/20 05:45 Lymph % (Auto) 29.4 % 10/18/20 05:45 [place] % (Auto) 16.1 % 10/18/20 05:45 Eos % (Auto) 0.3 % 10/18/20 05:45 Baso % (Auto) 4.1 % 10/18/20 05:45 Neut # (Auto) 1.95 K/uL (1.4-6.5) 10/18/20 05:45 Lymph # (Auto) 1.15 K/uL (1.2-3.4) L 10/18/20 05:45 [place] # (Auto) 0.63 K/uL (0.11-0.59) H 10/18/20 05:45 Eos # (Auto) 0.01 K/uL (0-0.5) 10/18/20 05:45 Baso # (Auto) 0.16 K/uL (0-0.2) 10/18/20 05:45 Immature Gran # (Auto) 0.01 K/uL (0.00-0.02) 10/18/20 05:45 Blood Smear Review Cancelled 10/16/20 23:19 Platelet Estimate Decreased (Normal) L 10/18/20 05:45 Echinocytes 1+ 10/18/20 05:45 Peripher Smr Path Cons 10/16/20 23:19 PT 10.3 Seconds (9.0-12.0) 10/18/20 10:00 INR 1.0 (0.9-1.1) 10/18/20 10:00 APTT 29.0 Seconds (21.0-31.0) 10/18/20 10:00 PTT Ratio 1.1 10/18/20 10:00 Sample Site L Radial 10/17/20 12:39 POC pH 7.30 (7.35-7.45) L 10/17/20 12:39 POC pCO2 33 mmHg (35-46) L 10/17/20 12:39 POC pO2 73 mmHg (80-95) L 10/17/20 12:39 POC HCO3 17 tiffanie/L (19-24) L 10/17/20 12:39 POC Total CO2 18 mmol/L (24-31) L 10/17/20 12:39 POC Base Excess -10.0 tiffanie/L (-9-1.8) L 10/17/20 12:39 ABG pH (Temp Correct) 7.304 (7.35-7.45) L 10/17/20 12:39 ABG pCO2 (Temp Corrct 33 mmHg (35-46) L 10/17/20 12:39 POC ABG pO2 at Pt Temp 73 10/17/20 12:39 POC ABG O2 Sat 93.0 % (90-95) 10/17/20 12:39 Maik Test Pass 10/17/20 12:39 O2 Delivery Device Room Air 10/17/20 12:39 POC Sodium 127 mmol/L (135-144) L 10/17/20 12:39 Sodium 134 mmol/L (136-145) L 10/18/20 05:39 POC Potassium 4.0 mmol/L (3.3-5.0) 10/17/20 12:39 Potassium 3.8 mmol/L (3.5-5.1) 10/18/20 05:39 Chloride 103 mmol/L (98-107) 10/18/20 05:39 Carbon Dioxide 23 mmol/L (21-32) 10/18/20 05:39 Anion Gap 8.0 (3-11) 10/18/20 05:39 BUN 66 mg/dl (7-18) H 10/18/20 05:39 Creatinine 6.81 mg/dl (0.6-1.4) H* D 10/18/20 05:39 Est Cr Clr Drug Dosing 13.2 ml/min 10/18/20 05:39 Est GFR ( Amer) 9.2 ml/min 10/18/20 05:39 Est GFR (Non-Af Amer) 7.9 ml/min 10/18/20 05:39 BUN/Creatinine Ratio 9.7 (10-20) L 10/18/20 05:39 Glucose 142 mg/dl (70-99) H 10/18/20 05:39 POC Glucose 196 mg/dl (70-99) H 10/18/20 11:34 Calcium 7.5 mg/dl (8.5-10.1) L 10/18/20 05:39 Phosphorus 3.6 mg/dl (2.5-4.9) D 10/18/20 05:39 Total Bilirubin 0.6 mg/dl (0.2-1) 10/16/20 23:19 AST 203 U/L (15-37) H 10/16/20 23:19 ALT 133 U/L (12-78) H 10/16/20 23:19 Alkaline Phosphatase 178 U/L (45-117) H 10/16/20 23:19 Total Creatine Kinase 1570 U/L (39-308) H 10/16/20 23:19 Total Protein 5.6 gm/dl (6.4-8.2) L 10/16/20 23:19 Albumin 1.9 gm/dl (3.4-5.0) L 10/18/20 05:39 Globulin 3.2 gm/dl (2.5-4.0) 10/16/20 23:19 Albumin/Globulin Ratio 0.8 (0.9-2) L 10/16/20 23:19 Beta-Hydroxybutyric Acd 24.51 mg/dl (0.2-2.81) H 10/17/20 11:36 Urine Color Dark Yellow 10/17/20 00:45 Urine Appearance Cloudy (Clear) A 10/17/20 00:45 Urine pH 5.0 (4.5-7.5) 10/17/20 00:45 Ur Specific [place] 1.018 (1.000-1.030) 10/17/20 00:45 Urine Protein 3+ (Negative) H 10/17/20 00:45 Urine Glucose (UA) Trace (Negative) H 10/17/20 00:45 Urine Ketones Trace (Negative) H 10/17/20 00:45 Urine Blood 3+ (Negative) H 10/17/20 00:45 Urine Nitrite Negative (Negative) 10/17/20 00:45 Urine Bilirubin 1+ (Negative) H 10/17/20 00:45 Urine Urobilinogen Negative (Negative) 10/17/20 00:45 Ur Leukocyte Esterase Negative (Negative) 10/17/20 00:45 Urine WBC (Auto) 10-30 /hpf (0-5) H 10/17/20 00:45 Urine RBC (Auto) >30 /hpf (0-4) H 10/17/20 00:45 U Hyaline Cast (Auto) 0 /lpf (0-5) 10/17/20 00:45 U Epithel Cells (Auto) >30 /lpf (0-5) H 10/17/20 00:45 Urine Bacteria (Auto) Negative (Negative) 10/17/20 00:45 Ur Renal Epithelial Cell Not Reportable 10/17/20 00:45 Amorphous Sediment Present (None Prsent) A 10/17/20 00:45 Urine Yeast Not Reportable 10/17/20 00:45 Ur Random Creatinine 111.0 mg/dl 10/17/20 10:01 U Random Total Protein 315.4 mg/dl (0-11.9) H 10/17/20 00:45 U Random Total Protein Cancelled 10/17/20 00:45 Ur Random Sodium 36 mmol/L 10/17/20 10:01 Ur Random Urea Nitrogn 333 mg/dl 10/17/20 00:45 Protein/Creatinin Ratio 2.0 (0-0.2) H 10/17/20 00:45 Protein/Creatinin Ratio Cancelled 10/17/20 00:45 Anaplasma Smear See Comment A 10/16/20 23:19 A. phagocytophilum DNA Cancelled 10/16/20 23:19 Anaplasma Comment Pos for Anaplasma 10/16/20 23:19 Lyme Disease IgG Ab Negative (Negative) 10/16/20 23:19 Lyme Disease IgM Ab Negative (Negative) 10/16/20 23:19 COVID-19 Eval Order Covid19 at [facility] 10/17/20 Unknown SARS-CoV-2 (PCR) NEGATIVE (Negative) 10/17/20 Unknown Hep Bs Antigen Neg (Neg) 10/17/20 11:36 Hep Bs Antibody Non-Immune 10/17/20 11:36 Hep Bs Antibody, Quant < 3.10 mIU/mL (>or=10mIU/mL Immune) L 10/17/20 11:36 Resident Activity Tracking Resident Involvement: Resident Care Provided Care Provided: Adult Hospital Medicine (1) Acute renal failure Acute renal failure type: unspecified Qualified Code(s): N17.9 - Acute kidney failure, unspecified (2) Hyperlipidemia Hyperlipidemia type: unspecified Qualified Code(s): E78.5 - Hyperlipidemia, unspecified (3) Hypothyroidism Hypothyroidism type: unspecified Qualified Code(s): E03.9 - Hypothyroidism, unspecified (4) Hypertension Hypertension type: unspecified Qualified Code(s): I10 - Essential (primary) hypertension
--- NOTE | 2020-10-18 21:06 | Electrocardiogram Report ---
Test Reason : Blood Pressure : / mmHG Vent. Rate : 067 BPM Atrial Rate : 067 BPM P-R Int : 176 ms QRS Dur : 094 ms QT Int : 400 ms P-R-T Axes : 013 -10 023 degrees QTc Int : 422 ms Normal sinus rhythm Low voltage QRS possible Inferior infarct (cited on or before 17-OCT-2020) Abnormal ECG When compared with ECG of 17-OCT-2020 05:49, No significant change was found Confirmed by Hilario Jeffries ([id number]) on 10/18/2020 9:06:06 PM Referred By: Ernie Gomez Confirmed By:Thiago Jeffries
[2020-10-18] MEDS: INSULIN GLARGINE SOLOSTAR 100 UNITS/ML 3 ML PEN SC SCH (21:12)
[2020-10-19] MEDS: DOXYCYCLINE HYCLATE 100 MG in DEXTROSE 5% 100 ML IV SCH (00:55)
[2020-10-19] MEDS: INSULIN ASPART 100 UNITS/ML 3 ML PEN SC SCH ×4 (08:36→21:13)
[2020-10-19] MEDS: METOPROLOL TARTRATE 25 MG TAB PO SCH (08:37)
[2020-10-19] MEDS: ATORVASTATIN 10 MG TAB PO SCH (08:37)
[2020-10-19] MEDS: LEVOTHYROXINE SODIUM 50 MCG TABLET PO SCH (08:37)
[2020-10-19] MEDS: MULTIVITAMIN TAB PO SCH (08:37)
--- NOTE | 2020-10-19 08:44 | Hospitalist Progress Note ---
Date of Service October 19, 2020 Assessment & Plan (1) Acute renal failure: 64 yo M Hx renal cell carcinoma s/p right nephrectomy in 2012, HTN, HLD, hypothyroidism, DM2 on insulin therapy admitted for acute renal failure with suspected tick-borne infection. Acute renal failure, due ATN from anaplasmosis septic hypovolemia, Hx right nephrectomy for RCC - History of radical HALN R kidney and adrenal gland [place] [facility] [place] - Found to have creatinine 6 (baseline 1.7) with BUN/Cr ratio of 10. - CTAP negative for obstructive disease - Urine lytes showing evidence of intrinsic damage. complement levels and antibodies pending. - Mcneill placed to monitor strict ins and outs. 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 HTN, HLD: - Continue metoprolol and statin. - Hold ARB in setting of ARF. Hypothyroidism: - Continue levothyroxine. IDDM2 - cont home 30u lantus HS with SSI - DKA episode x 1, resolved after restarting home lantus dosing Code Status: FULL CODE FEN: DM2 diet DVT ppx: SCDs, Dispo: PCU (2) Hypertension: (3) Hypothyroidism: (4) Hyperlipidemia: (5) Diabetes mellitus type 2 with complications: Admission and Anticipated Discharge Date Admission Date: October 16, 2020 Supervising Physician Co-Signing Physician Notes I personally saw and examined the patient. I verified all jovel points and agree with resident physician Dr Ada Millard with the following exceptions and/or additions: Slowly improving fatigue. No acute events overnight. Urine output remains low. Will undergo hemodialysis again today. Chest CTAB, HS 1+2, no murmurs, moist mucus membranes Appreciate nephrology management for hemodialysis Continue treatment for anaplasmosis Subjective feeling less fatigued today. says he generally feels nauseous but zofran has been helping. otherwise just feels stiff from being in bed. is looking forward to getting up and walking around. feeling less fatigued today. says he generally feels nauseous but fidel has been helping. otherwise just feels stiff from being in bed. is looking forward to getting up and walking around. Review of Systems Constitutional: no fever, no chills, no sweats and no fatigue Respiratory: no cough and no dyspnea Cardiovascular: no chest pain and no edema Gastrointestinal: + nausea; no abdominal pain, no vomiting and no diarrhea/loose stools Neurologic: no tingling, no numbness and no headache(s) Physical Exam Physical Exam: Constitutional: well appearing Eyes: EOMI, pupils equal and reactive bilaterally, no scleral icterus Cardiac: RRR, no murmurs, gallops or rubs. Normal S1, S2 Pulm: CTA BL, no wheezes, rhonchi, crackles or rubs, moving air well throughout both lungs Abd: soft, nontender, nondistended, normal bowel sounds, no rebound or guarding Extremities: 2+ peripheral pulses, no edema, femoral dialysis catheter in place, obscured by bandages Neuro: no focal deficits, moving all 4 limbs, A&Ox3 Results & Data Results & Data ([facility]) Vital Signs (Past 12 Hours) Vital Signs Temp Pulse Resp BP Pulse Ox 10/19/20 08:18 36.7 C 65 16 159/88 H 92 10/19/20 03:18 36.6 C 65 16 148/79 H 94 10/18/20 22:52 36.8 C 66 16 135/77 92 Laboratory Results WBC 7.65 K/uL (4.8-10.8) 10/19/20 08:40 RBC 3.95 M/uL (4.7-6.1) L 10/19/20 08:40 Hgb 12.2 g/dL (14.0-18.0) L 10/19/20 08:40 POC Hgb 10.9 g/dl (14.0-18.0) L 10/17/20 12:39 Hct 36.0 % (42-52) L 10/19/20 08:40 POC Hct 32 % (42-52) L 10/17/20 12:39 MCV 91.1 fL (80-100) 10/19/20 08:40 MCH 30.9 pg (25-34) 10/19/20 08:40 MCHC 33.9 g/dL (32-36) 10/19/20 08:40 RDW Std Deviation 48.0 fL (36.4-46.3) H 10/19/20 08:40 RDW Coeff of Rony 14.3 % (11.5-14.5) 10/19/20 08:40 Plt Count 87 K/uL (130-400) L 10/19/20 08:40 MPV 12.5 fL (7.4-10.4) H 10/19/20 08:40 Immature Gran % (Auto) 0.4 % 10/19/20 08:40 Neut % (Auto) 34.7 % 10/19/20 08:40 Lymph % (Auto) 44.8 % 10/19/20 08:40 [place] % (Auto) 17.3 % 10/19/20 08:40 Eos % (Auto) 0.1 % 10/19/20 08:40 Baso % (Auto) 2.7 % 10/19/20 08:40 Neut # (Auto) 2.65 K/uL (1.4-6.5) 10/19/20 08:40 Lymph # (Auto) 3.43 K/uL (1.2-3.4) H 10/19/20 08:40 [place] # (Auto) 1.32 K/uL (0.11-0.59) H 10/19/20 08:40 Eos # (Auto) 0.01 K/uL (0-0.5) 10/19/20 08:40 Baso # (Auto) 0.21 K/uL (0-0.2) H 10/19/20 08:40 Immature Gran # (Auto) 0.03 K/uL (0.00-0.02) H 10/19/20 08:40 Blood Smear Review Cancelled 10/16/20 23:19 Platelet Estimate Decreased (Normal) L 10/19/20 08:40 Echinocytes 1+ 10/18/20 05:45 Peripher Smr Path Cons 10/16/20 23:19 PT 10.3 Seconds (9.0-12.0) 10/18/20 10:00 INR 1.0 (0.9-1.1) 10/18/20 10:00 APTT 29.0 Seconds (21.0-31.0) 10/18/20 10:00 PTT Ratio 1.1 10/18/20 10:00 Sample Site L Radial 10/17/20 12:39 POC pH 7.30 (7.35-7.45) L 10/17/20 12:39 POC pCO2 33 mmHg (35-46) L 10/17/20 12:39 POC pO2 73 mmHg (80-95) L 10/17/20 12:39 POC HCO3 17 tiffanie/L (19-24) L 10/17/20 12:39 POC Total CO2 18 mmol/L (24-31) L 10/17/20 12:39 POC Base Excess -10.0 tiffanie/L (-9-1.8) L 10/17/20 12:39 ABG pH (Temp Correct) 7.304 (7.35-7.45) L 10/17/20 12:39 ABG pCO2 (Temp Corrct 33 mmHg (35-46) L 10/17/20 12:39 POC ABG pO2 at Pt Temp 73 10/17/20 12:39 POC ABG O2 Sat 93.0 % (90-95) 10/17/20 12:39 Maik Test Pass 10/17/20 12:39 O2 Delivery Device Room Air 10/17/20 12:39 POC Sodium 127 mmol/L (135-144) L 10/17/20 12:39 Sodium 134 mmol/L (136-145) L 10/19/20 08:40 POC Potassium 4.0 mmol/L (3.3-5.0) 10/17/20 12:39 Potassium 3.8 mmol/L (3.5-5.1) 10/19/20 08:40 Chloride 101 mmol/L (98-107) 10/19/20 08:40 Carbon Dioxide 23 mmol/L (21-32) 10/19/20 08:40 Anion Gap 10.0 (3-11) 10/19/20 08:40 BUN 55 mg/dl (7-18) H 10/19/20 08:40 Creatinine 6.51 mg/dl (0.6-1.4) H* D 10/19/20 08:40 Est Cr Clr Drug Dosing 13.9 ml/min 10/19/20 08:40 Est GFR ( Amer) 9.7 ml/min 10/19/20 08:40 Est GFR (Non-Af Amer) 8.3 ml/min 10/19/20 08:40 BUN/Creatinine Ratio 8.4 (10-20) L 10/19/20 08:40 Glucose 172 mg/dl (70-99) H 10/19/20 08:40 POC Glucose 169 mg/dl (70-99) H 10/19/20 11:30 Calcium 7.6 mg/dl (8.5-10.1) L 10/19/20 08:40 Phosphorus 3.6 mg/dl (2.5-4.9) D 10/18/20 05:39 Total Bilirubin 0.6 mg/dl (0.2-1) 10/16/20 23:19 AST 203 U/L (15-37) H 10/16/20 23:19 ALT 133 U/L (12-78) H 10/16/20 23:19 Alkaline Phosphatase 178 U/L (45-117) H 10/16/20 23:19 Total Creatine Kinase 1570 U/L (39-308) H 10/16/20 23:19 Total Protein 5.6 gm/dl (6.4-8.2) L 10/16/20 23:19 Albumin 1.9 gm/dl (3.4-5.0) L 10/18/20 05:39 Globulin 3.2 gm/dl (2.5-4.0) 10/16/20 23:19 Albumin/Globulin Ratio 0.8 (0.9-2) L 10/16/20 23:19 Beta-Hydroxybutyric Acd 24.51 mg/dl (0.2-2.81) H 10/17/20 11:36 Urine Color Dark Yellow 10/17/20 00:45 Urine Appearance Cloudy (Clear) A 10/17/20 00:45 Urine pH 5.0 (4.5-7.5) 10/17/20 00:45 Ur Specific [place] 1.018 (1.000-1.030) 10/17/20 00:45 Urine Protein 3+ (Negative) H 10/17/20 00:45 Urine Glucose (UA) Trace (Negative) H 10/17/20 00:45 Urine Ketones Trace (Negative) H 10/17/20 00:45 Urine Blood 3+ (Negative) H 10/17/20 00:45 Urine Nitrite Negative (Negative) 10/17/20 00:45 Urine Bilirubin 1+ (Negative) H 10/17/20 00:45 Urine Urobilinogen Negative (Negative) 10/17/20 00:45 Ur Leukocyte Esterase Negative (Negative) 10/17/20 00:45 Urine WBC (Auto) 10-30 /hpf (0-5) H 10/17/20 00:45 Urine RBC (Auto) >30 /hpf (0-4) H 10/17/20 00:45 U Hyaline Cast (Auto) 0 /lpf (0-5) 10/17/20 00:45 U Epithel Cells (Auto) >30 /lpf (0-5) H 10/17/20 00:45 Urine Bacteria (Auto) Negative (Negative) 10/17/20 00:45 Ur Renal Epithelial Cell Not Reportable 10/17/20 00:45 Amorphous Sediment Present (None Prsent) A 10/17/20 00:45 Urine Yeast Not Reportable 10/17/20 00:45 Ur Random Creatinine 111.0 mg/dl 10/17/20 10:01 U Random Total Protein 315.4 mg/dl (0-11.9) H 10/17/20 00:45 U Random Total Protein Cancelled 10/17/20 00:45 Ur Random Sodium 36 mmol/L 10/17/20 10:01 Ur Random Urea Nitrogn 333 mg/dl 10/17/20 00:45 Protein/Creatinin Ratio 2.0 (0-0.2) H 10/17/20 00:45 Protein/Creatinin Ratio Cancelled 10/17/20 00:45 Anaplasma Smear See Comment A 10/16/20 23:19 A. phagocytophilum DNA Cancelled 10/16/20 23:19 Anaplasma Comment Pos for Anaplasma 10/16/20 23:19 Lyme Disease IgG Ab Negative (Negative) 10/16/20 23:19 Lyme Disease IgM Ab Negative (Negative) 10/16/20 23:19 COVID-19 Eval Order Covid19 at [facility] 10/17/20 Unknown SARS-CoV-2 (PCR) NEGATIVE (Negative) 10/17/20 Unknown Hep Bs Antigen Neg (Neg) 10/17/20 11:36 Hep Bs Antibody Non-Immune 10/17/20 11:36 Hep Bs Antibody, Quant < 3.10 mIU/mL (>or=10mIU/mL Immune) L 10/17/20 11:36 Resident Activity Tracking Resident Involvement: Resident Care Provided Care Provided: Adult Hospital Medicine (1) Acute renal failure Acute renal failure type: unspecified Qualified Code(s): N17.9 - Acute kidney failure, unspecified (2) Hyperlipidemia Hyperlipidemia type: unspecified Qualified Code(s): E78.5 - Hyperlipidemia, unspecified (3) Hypothyroidism Hypothyroidism type: unspecified Qualified Code(s): E03.9 - Hypothyroidism, unspecified (4) Hypertension Hypertension type: unspecified Qualified Code(s): I10 - Essential (primary) hypertension
[2020-10-19 09:27] LABS: BUN Creatinine Ratio 8.4 (10-20); Calcium 7.6 mg/dl (8.5-10.1); Creatinine Clr Calc Pharmacy 13.9 ml/min; Est GFR (African American) 9.7 ml/min; Est GFR (Non-African American) 8.3 ml/min; Potassium 3.8 mmol/L (3.5-5.1)
[2020-10-19 09:37] LABS: Basophils # (auto) 0.21 K/uL (0-0.2); Basophils % (auto) 2.7 %; Eosinophils # (auto) 0.01 K/uL (0-0.5); Eosinophils % (auto) 0.1 %; Hemoglobin 12.2 g/dL (14.0-18.0); Immature Granulocytes # (auto) 0.03 K/uL (0.00-0.02); Immature Granulocytes % (auto) 0.4 %; Lymphocytes # (auto) 3.43 K/uL (1.2-3.4); Lymphocytes % (auto) 44.8 %; Mean Corpuscular Hemoglobin 30.9 pg (25-34); Mean Corpuscular Hgb Conc 33.9 g/dL (32-36); Mean Corpuscular Volume 91.1 fL (80-100); Mean Platelet Volume 12.5 fL (7.4-10.4); Monocytes # (auto) 1.32 K/uL (0.11-0.59); Monocytes % (auto) 17.3 %; Neutrophils # (auto) 2.65 K/uL (1.4-6.5); Neutrophils % (auto) 34.7 %; Platelet Count 87 K/uL (130-400); Platelet Estimate Decreased (Normal); RDW Coefficient of Variation 14.3 % (11.5-14.5); Red Blood Count 3.95 M/uL (4.7-6.1); White Blood Count 7.65 K/uL (4.8-10.8)
--- NOTE | 2020-10-19 11:14 | Nephrology Progress Note ---
Date of Service October 19, 2020 Assessment & Plan (1) Acute renal failure: UOP remains low (275 ml/24 hrs). Clinical presentation consistent with ATN in setting of anaplasmosis. Urine microscopy notable for microscopic hematuria + protein. Serologic GN evaluation pending. No renal recovery noted. Started HD 10/17 for clearance. Temporary femoral catheter placed 10/17. First HD treatment 10/17. Permcath deferred due to thrombocytopenia and aspirin. Orders for HD today entered into EMR and reviewed with nurse. Document I/O's and repeat metabolic profile tomorrow AM. Mcneill may be removed per nursing protocol. (2) Hypertension: BP and volume status acceptable. 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 Medical history notable for DM and hypertension. Medications appropriately dosed for kidney dysfunction. (4) Anaplasmosis: Remains on doxycycline. Admission and Anticipated Discharge Date Admission Date: October 16, 2020 Subjective No acute events overnight. Tolerated HD yesterday without complications. UF 1 L. Femoral catheter functioning well. Review of Systems Review of Systems: All systems reviewed & are unremarkable except as noted in HPI & below Physical Exam Constitutional: well developed; no acute distress Eyes: no scleral abnormality and no corneal abnormality ENMT: Mouth: no oral mucosal abnormality and oral mucous membranes not dry Neck: normal visual inspection and trachea midline Respiratory: normal respiratory effort Auscultation: lungs clear to auscultation bilaterally Cardiovascular: Rate/Rhythm: regular rate Heart Sounds: normal S1 and normal S2 Extremities: no edema Musculoskeletal: Extremities: no cyanosis and no clubbing Skin: normal turgor; no lesions Neurologic: Motor/Sensory: no tremor and no asterixis Psychiatric: Orientation: alert and oriented x 3 Results & Data ([facility]) Vital Signs (Past 12 Hours) Vital Signs Temp Pulse Pulse Resp BP Pulse Ox 10/19/20 08:18 36.7 C 65 16 159/88 H 92 10/19/20 07:45 58 L 10/19/20 03:18 36.6 C 65 16 148/79 H 94 Laboratory Results Laboratory Results - last 24 hr 10/18/20 10/18/20 10/18/20 11:34 18:30 20:44 WBC RBC Hgb Hct MCV MCH MCHC RDW Std Deviation RDW Coeff of Rony Plt Count MPV Immature Gran % (Auto) Neut % (Auto) Lymph % (Auto) [place] % (Auto) Eos % (Auto) Baso % (Auto) Neut # (Auto) Lymph # (Auto) [place] # (Auto) Eos # (Auto) Baso # (Auto) Immature Gran # (Auto) Platelet Estimate Sodium Potassium Chloride Carbon Dioxide Anion Gap BUN Creatinine Est Cr Clr Drug Dosing Est GFR ( Amer) Est GFR (Non-Af Amer) BUN/Creatinine Ratio Glucose POC Glucose 196 H 123 H 205 H Calcium 10/19/20 10/19/20 10/19/20 07:56 08:40 08:40 WBC 7.65 RBC 3.95 L Hgb 12.2 L Hct 36.0 L MCV 91.1 MCH 30.9 MCHC 33.9 RDW Std Deviation 48.0 H RDW Coeff of Rony 14.3 Plt Count 87 L MPV 12.5 H Immature Gran % (Auto) 0.4 Neut % (Auto) 34.7 Lymph % (Auto) 44.8 [place] % (Auto) 17.3 Eos % (Auto) 0.1 Baso % (Auto) 2.7 Neut # (Auto) 2.65 Lymph # (Auto) 3.43 H [place] # (Auto) 1.32 H Eos # (Auto) 0.01 Baso # (Auto) 0.21 H Immature Gran # (Auto) 0.03 H Platelet Estimate Decreased L Sodium 134 L Potassium 3.8 Chloride 101 Carbon Dioxide 23 Anion Gap 10.0 BUN 55 H Creatinine 6.51 H* D Est Cr Clr Drug Dosing 13.9 Est GFR ( Amer) 9.7 Est GFR (Non-Af Amer) 8.3 BUN/Creatinine Ratio 8.4 L Glucose 172 H POC Glucose 199 H Calcium 7.6 L PG Care Time/CCT Total # of Minutes Spent Total Time Spent with Patient: Total time spent is greater than 50% in coordination of care (as documented) at patient's floor/unit and/or counseling patient: Coding Level of Care Code 09044 Subseq Hosp Care Lvl 3 Diagnoses Acute renal failure N17.9 Acute renal failure type: unspecified Hypertension I10 Hypertension type: unspecified Chronic kidney disease, stage III (moderate) N18.3 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
[2020-10-19] MEDS: ONDANSETRON INJ 2 MG/ML 2 ML VIAL IV PRN ×2 (12:09→21:01)
[2020-10-19] MEDS: INSULIN GLARGINE SOLOSTAR 100 UNITS/ML 3 ML PEN SC SCH (21:13)
[2020-10-20] MEDS ORDERED: Nursing to Pharmacy Communication SCH ×2 (01:00→12:15)
[2020-10-20] MEDS: LEVOTHYROXINE SODIUM 50 MCG TABLET PO SCH (05:36)
[2020-10-20] MEDS: ONDANSETRON INJ 2 MG/ML 2 ML VIAL IV PRN ×2 (06:27→12:39)
[2020-10-20] MEDS: INSULIN ASPART 100 UNITS/ML 3 ML PEN SC SCH ×4 (06:51→21:16)
[2020-10-20 07:14] LABS: Hematocrit (blood only) 34.5 % (42-52); Hemoglobin 11.8 g/dL (14.0-18.0); Mean Corpuscular Hemoglobin 31.3 pg (25-34); Mean Corpuscular Hgb Conc 34.2 g/dL (32-36); Mean Corpuscular Volume 91.5 fL (80-100); Mean Platelet Volume 12.9 fL (7.4-10.4); Platelet Count 143 K/uL (130-400); RDW Coefficient of Variation 14.4 % (11.5-14.5); RDW Standard Deviation 48.3 fL (36.4-46.3); Red Blood Count 3.77 M/uL (4.7-6.1); White Blood Count 12.25 K/uL (4.8-10.8)
[2020-10-20 07:22] LABS: ALC (manual) 6.82 K/uL (1.2-3.4); ANC (manual) 4.36 K/uL (1.4-6.5); Basophils # (manual) 0.11 K/uL (0-0.2); Basophils % (manual) 0.9 %; Lymphocytes # (manual) 2.45 K/uL (1.2-3.4); Monocytes # (manual) 0.96 K/uL (0.11-0.59); Monocytes % (manual) 7.8 %; Neutrophils # (manual) 4.36 K/uL (1.4-6.5); Neutrophils % (manual) 35.6 %; Reactive Lymphocytes # (manual) 4.37 K/uL; Reactive Lymphocytes % (manual) 35.7 %
[2020-10-20 07:24] LABS: BUN Creatinine Ratio 8.5 (10-20); Calcium 7.7 mg/dl (8.5-10.1); Creatinine Clr Calc Pharmacy 11.5 ml/min; Est GFR (African American) 7.6 ml/min; Est GFR (Non-African American) 6.6 ml/min; Potassium 3.7 mmol/L (3.5-5.1)
--- NOTE | 2020-10-20 08:04 | Hospitalist Progress Note ---
Date of Service October 20, 2020 Assessment & Plan (1) Acute renal failure: 64 yo M Hx renal cell carcinoma s/p right nephrectomy in 2013, HTN, HLD, hypothyroidism, DM2 on insulin therapy admitted for acute renal failure with suspected tick-borne infection. (1) Acute renal failure, due ATN from anaplasmosis septic hypovolemia, Hx right nephrectomy for RCC History of radical HALN R kidney and adrenal gland at [facility] [place]. On admission found to have creatinine 6 (baseline 1.7) with BUN/Cr ratio of 10. CTAP negative for obstructive disease. Urine lytes showing evidence of intrinsic damage. Complement levels WNL - antibodies pending. 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 (4) HTN, HLD: - Continue metoprolol and statin. (5) Hypothyroidism: - Continue levothyroxine. (6) IDDM2 - Cont home 30u lantus HS with SSI - DKA episode x 1, resolved after restarting home lantus dosing Code Status: FULL CODE FEN: DM2 diet DVT ppx: SCDs, Dispo: PCU (2) Hypertension: (3) Hypothyroidism: (4) Hyperlipidemia: (5) Diabetes mellitus type 2 with complications: Admission and Anticipated Discharge Date Admission Date: October 16, 2020 Supervising Physician Co-Signing Physician Notes Attending attestation Pt seen and examined in concert with Dr. Mari. In agreement with the documented findings as noted in the resident documentation with any exceptions or additions as noted here. Resting in bed s/p permacath placement in right chest, feeling fatigued which is overall improved from admission without other acute complaints. On examination, S1/S2 nl RRR no MCG. CTAB. Abd NT/ND BS+ve. Right chest permacath in place, C/D/I Acute renal failure in the setting of CKD III, likely 2/2 ATN from anaplasmosis: trend BMP daily. HD per nephrology recommendations with outpatient coordination for same. Anaplasmosis - continue doxycycline and transition to PO on discharge to complete course. Thrombocytopenia - trend CBC - improving, monitor Type 2 diabetes - continue basal/bolus, adjust per POC glucose and labs Else see resident documentation as noted. Subjective Patient seen at bedside. No events overnight, slept well, NPO since yesterday, last bowel movement yesterday, currently experiencing mild nausea. He is awaiting dialysis catheterization procedure and would like to know when that is. Nurse wants to know it they can give him something besides zofran for nausea as it is not working. PMH: Nephrectomy, CKD2, DM2, HTN Review of Systems Review of Systems: +Nausea negative fever chills headache dizziness vomitting diarrhea constipation numbness tingling in extremities rashes Physical Exam Physical Exam: Heart: RRR, no gallops/rubs/murmurs Lungs: mild wheeze left lower lobe, cta b/l Extremities: +1 pitting edema b/l Results & Data Results & Data ([facility]) Vital Signs (Past 12 Hours) Vital Signs Temp Pulse Pulse Resp BP Pulse Ox 10/20/20 07:45 36.6 C 63 16 156/87 H 94 10/19/20 22:52 36.8 C 70 16 151/76 H 93 Laboratory Results 10/20/20 10/20/20 10/20/20 Range/Units 12:01 06:46 06:24 WBC (4.8-10.8) K/uL RBC (4.7-6.1) M/uL Hgb (14.0-18.0) g/dL Hct (42-52) % MCV (80-100) fL MCH (25-34) pg MCHC (32-36) g/dL RDW Std Deviation (36.4-46.3) fL RDW Coeff of Rony (11.5-14.5) % Plt Count (130-400) K/uL MPV (7.4-10.4) fL Neutrophils % (Manual) % Lymphocytes % (Manual) % Reactive Lymphs % (Man) % Monocytes % (Manual) % Basophils % (Manual) % Neutrophils # (Manual) (1.4-6.5) K/uL Total Absolute Neuts (1.4-6.5) K/uL Lymphocytes # (Manual) (1.2-3.4) K/uL Reactive Lymphs # K/uL Total Abs Lymphocytes (1.2-3.4) K/uL Monocytes # (Manual) (0.11-0.59) K/uL Basophils # (Manual) (0-0.2) K/uL Sodium 135 L (136-145) mmol/L Potassium 3.7 (3.5-5.1) mmol/L Chloride 102 (98-107) mmol/L Carbon Dioxide 23 (21-32) mmol/L Anion Gap 10.0 (3-11) BUN 68 H (7-18) mg/dl Creatinine 7.90 H* D (0.6-1.4) mg/dl Est Cr Clr Drug Dosing 11.5 ml/min Est GFR ( Amer) 7.6 ml/min Est GFR (Non-Af Amer) 6.6 ml/min BUN/Creatinine Ratio 8.5 L (10-20) Glucose 126 H (70-99) mg/dl POC Glucose 160 H 139 H (70-99) mg/dl Calcium 7.7 L (8.5-10.1) mg/dl Complement C3 (82-185) mg/dL Complement C4 (15-53) mg/dL 10/20/20 10/19/20 10/19/20 Range/Units 06:24 20:46 17:25 WBC 12.25 H (4.8-10.8) K/uL RBC 3.77 L (4.7-6.1) M/uL Hgb 11.8 L (14.0-18.0) g/dL Hct 34.5 L (42-52) % MCV 91.5 (80-100) fL MCH 31.3 (25-34) pg MCHC 34.2 (32-36) g/dL RDW Std Deviation 48.3 H (36.4-46.3) fL RDW Coeff of Rony 14.4 (11.5-14.5) % Plt Count 143 D (130-400) K/uL MPV 12.9 H (7.4-10.4) fL Neutrophils % (Manual) 35.6 % Lymphocytes % (Manual) 20.0 % Reactive Lymphs % (Man) 35.7 % Monocytes % (Manual) 7.8 % Basophils % (Manual) 0.9 % Neutrophils # (Manual) 4.36 (1.4-6.5) K/uL Total Absolute Neuts 4.36 (1.4-6.5) K/uL Lymphocytes # (Manual) 2.45 (1.2-3.4) K/uL Reactive Lymphs # 4.37 K/uL Total Abs Lymphocytes 6.82 H (1.2-3.4) K/uL Monocytes # (Manual) 0.96 H (0.11-0.59) K/uL Basophils # (Manual) 0.11 (0-0.2) K/uL Sodium (136-145) mmol/L Potassium (3.5-5.1) mmol/L Chloride (98-107) mmol/L Carbon Dioxide (21-32) mmol/L Anion Gap (3-11) BUN (7-18) mg/dl Creatinine (0.6-1.4) mg/dl Est Cr Clr Drug Dosing ml/min Est GFR ( Amer) ml/min Est GFR (Non-Af Amer) ml/min BUN/Creatinine Ratio (10-20) Glucose (70-99) mg/dl POC Glucose 107 H 102 H (70-99) mg/dl Calcium (8.5-10.1) mg/dl Complement C3 (82-185) mg/dL Complement C4 (15-53) mg/dL 10/17/20 Range/Units 11:36 WBC (4.8-10.8) K/uL RBC (4.7-6.1) M/uL Hgb (14.0-18.0) g/dL Hct (42-52) % MCV (80-100) fL MCH (25-34) pg MCHC (32-36) g/dL RDW Std Deviation (36.4-46.3) fL RDW Coeff of Rony (11.5-14.5) % Plt Count (130-400) K/uL MPV (7.4-10.4) fL Neutrophils % (Manual) % Lymphocytes % (Manual) % Reactive Lymphs % (Man) % Monocytes % (Manual) % Basophils % (Manual) % Neutrophils # (Manual) (1.4-6.5) K/uL Total Absolute Neuts (1.4-6.5) K/uL Lymphocytes # (Manual) (1.2-3.4) K/uL Reactive Lymphs # K/uL Total Abs Lymphocytes (1.2-3.4) K/uL Monocytes # (Manual) (0.11-0.59) K/uL Basophils # (Manual) (0-0.2) K/uL Sodium (136-145) mmol/L Potassium (3.5-5.1) mmol/L Chloride (98-107) mmol/L Carbon Dioxide (21-32) mmol/L Anion Gap (3-11) BUN (7-18) mg/dl Creatinine (0.6-1.4) mg/dl Est Cr Clr Drug Dosing ml/min Est GFR ( Amer) ml/min Est GFR (Non-Af Amer) ml/min BUN/Creatinine Ratio (10-20) Glucose (70-99) mg/dl POC Glucose (70-99) mg/dl Calcium (8.5-10.1) mg/dl Complement C3 114 (82-185) mg/dL Complement C4 35 (15-53) mg/dL Medications Administered Current Inpatient Medications Acetaminophen (Acetaminophen 325 Mg Tab) 650 mg PO Q4H PRN PRN Reason: Pain or Fever Stop: 11/15/20 22:56 Atorvastatin Calcium (Atorvastatin 10 Mg Tab) 10 mg PO DAILY LESLY Stop: 11/16/20 08:59 Last Admin: 10/20/20 10:07 Dose: Not Given Documented by: Dextrose (Dextrose 50% 50 Ml Syringe) 25 - 50 ml IV UD PRN; Protocol PRN Reason: Hypoglycemia Protocol Stop: 11/15/20 22:56 Fluticasone Propionate (Fluticasone Propionate Na Spr 16 Gm Btl) 1 sprays NA DAILY PRN PRN Reason: nasal Stop: 11/15/20 23:19 Glucagon (Glucagon For Inj 1 Mg Vial) 1 mg SQ UD PRN; Protocol PRN Reason: Hypoglycemia Protocol Stop: 11/15/20 22:56 Glucose (Glucose 10 Tabs/Tube) 4 - 8 tabs PO UD PRN; Protocol PRN Reason: Hypoglycemia Protocol Stop: 11/15/20 22:56 Glucose (Glucose 40% Gel 15 Gm Tube) 15 - 30 gm PO UD PRN; Protocol PRN Reason: Hypoglycemia Protocol Stop: 11/15/20 22:56 Doxycycline Hyclate 100 mg/ (Dextrose) 110 mls @ 50 mls/hr IV Q12H [facility] Stop: 10/27/20 11:14 Last Infusion: 10/20/20 14:51 Dose: Infused Documented by: Insulin Aspart (Insulin Aspart 100 Units/Ml 3 Ml Pen) 0 units SC ACHS LESLY Stop: 11/19/20 16:29 Insulin Glargine (Insulin Glargine Solostar 100 Units/Ml 3 Ml Pen) 30 units SC HS [facility] Stop: 11/16/20 13:59 Last Admin: 10/19/20 21:13 Dose: Not Given Documented by: Levothyroxine Sodium (Levothyroxine Sodium 50 Mcg Tablet) 50 mcg PO DAILYBB [facility] Stop: 11/16/20 06:29 Last Admin: 10/20/20 05:36 Dose: Not Given Documented by: Metoprolol Tartrate (Metoprolol Tartrate 25 Mg Tab) 25 mg PO DAILY LESLY Stop: 11/16/20 08:59 Last Admin: 10/20/20 10:11 Dose: Not Given Documented by: Miscellaneous (Carbohydrates For Hypoglycemia ) 15 - 30 gm PO UD PRN PRN Reason: Hypoglycemia Protocol Stop: 11/15/20 22:56 Multivitamins (Multivitamin Tab) 1 tab PO DAILY LESLY Stop: 11/16/20 08:59 Last Admin: 10/20/20 10:08 Dose: Not Given Documented by: Ondansetron HCl (Ondansetron Inj 2 Mg/Ml 2 Ml Vial) 4 mg IV Q6H PRN PRN Reason: Nausea Stop: 11/15/20 22:56 Last Admin: 10/20/20 12:39 Dose: 4 mg Documented by: Resident Activity Tracking Resident Involvement: Resident Care Provided Care Provided: Adult Hospital Medicine (1) Acute renal failure Acute renal failure type: unspecified Qualified Code(s): N17.9 - Acute kidney failure, unspecified (2) Hyperlipidemia Hyperlipidemia type: unspecified Qualified Code(s): E78.5 - Hyperlipidemia, unspecified (3) Hypothyroidism Hypothyroidism type: unspecified Qualified Code(s): E03.9 - Hypothyroidism, unspecified (4) Hypertension Hypertension type: unspecified Qualified Code(s): I10 - Essential (primary) hypertension
[2020-10-20] MEDS ORDERED: ceFAZolin 2000MG 2,000 MG/15 ML SYR IV ONE (10:00)
[2020-10-20] MEDS: ATORVASTATIN 10 MG TAB PO SCH (10:07)
[2020-10-20] MEDS: MULTIVITAMIN TAB PO SCH (10:08)
[2020-10-20] MEDS ORDERED: fentaNYL citrate 100 MCG/2 ML VIAL ONE (10:08)
[2020-10-20] MEDS ORDERED: MIDAZOLAM HCL 1 MG/ML 2ML VIAL ONE (10:08)
[2020-10-20] MEDS ORDERED: HEPARIN SOD (PORCINE) 5,000 UNITS/ML VIAL ONE (10:09)
[2020-10-20] MEDS ORDERED: LIDOCAINE 1% LOCAL 20 ML VIAL ONE (10:09)
[2020-10-20] MEDS: METOPROLOL TARTRATE 25 MG TAB PO SCH (10:11)
--- NOTE | 2020-10-20 10:11 | History & Physical Bridge Note ---
Date of Service October 20, 2020 History & Physical Bridge Note Patient for permcath insertion today. I have discussed the risks options and benefits of the procedure with the patient. The patient understands the risks options and benefits and agrees to the procedure. I have examined the patient, reviewed the History & Physical and in the interval since the performance of the History & Physical I have noted the following changes of clinical significance: no changes noted
--- NOTE | 2020-10-20 10:20 | Nephrology Progress Note ---
Date of Service October 20, 2020 Assessment & Plan (1) Acute renal failure: Unfortunately, no signs of renal recovery. Permcath to be placed today. Clinical presentation consistent with ATN in setting of anaplasmosis. Urine microscopy notable for microscopic hematuria + protein. Complete serologic GN evaluation pending. Complement levels normal. Started HD 10/17 for clearance. Orders for HD today entered into EMR and reviewed with nurse. UF goal ~1 L. Temporary femoral catheter placed 10/17. First HD treatment 10/17. Document I/O's and repeat metabolic profile tomorrow AM. Case management consulted for outpatient HD arrangements ([facility] - Dr. Asencio) (2) Hypertension: BP and volume status acceptable. 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 Medical history notable for DM and hypertension. Medications appropriately dosed for kidney dysfunction. (4) Anaplasmosis: Remains on doxycycline. Admission and Anticipated Discharge Date Admission Date: October 16, 2020 Subjective No acute events overnight. No complaints this AM. Mild nausea persists. Appetite remains poor. No urinary complaints. UOP 350 ml yesterday. Review of Systems Constitutional: no weight loss, no weight gain and no problem reported Eyes: no problem reported Ear, Nose, Mouth, Throat: no problem reported Respiratory: no problem reported Cardiovascular: no problem reported Gastrointestinal: no problem reported Musculoskeletal: no problem reported Integumentary: no problem reported Neurologic: no problem reported Psychiatric: no problem reported Endocrine: no problem reported Hematologic / Lymphatic: no problem reported Physical Exam Constitutional: well developed; no acute distress Eyes: no scleral abnormality and no corneal abnormality ENMT: Mouth: no oral mucosal abnormality and oral mucous membranes not dry Neck: normal visual inspection and trachea midline Respiratory: normal respiratory effort Auscultation: lungs clear to auscultation bilaterally Cardiovascular: Rate/Rhythm: regular rate Heart Sounds: normal S1 and normal S2 Extremities: no edema Musculoskeletal: Extremities: no cyanosis and no clubbing Skin: normal turgor; no lesions Neurologic: Motor/Sensory: no tremor and no asterixis Psychiatric: Orientation: alert and oriented x 3 Results & Data ([facility]) Vital Signs (Past 12 Hours) Vital Signs Temp Pulse Pulse Resp BP Pulse Ox 10/20/20 07:45 36.6 C 63 16 156/87 H 94 10/19/20 22:52 36.8 C 70 16 151/76 H 93 Laboratory Results Laboratory Results - last 24 hr 10/17/20 10/19/20 10/19/20 11:36 17:25 20:46 WBC RBC Hgb Hct MCV MCH MCHC RDW Std Deviation RDW Coeff of Rony Plt Count MPV Neutrophils % (Manual) Lymphocytes % (Manual) Reactive Lymphs % (Man) Monocytes % (Manual) Basophils % (Manual) Neutrophils # (Manual) Total Absolute Neuts Lymphocytes # (Manual) Reactive Lymphs # Total Abs Lymphocytes Monocytes # (Manual) Basophils # (Manual) Sodium Potassium Chloride Carbon Dioxide Anion Gap BUN Creatinine Est Cr Clr Drug Dosing Est GFR ( Amer) Est GFR (Non-Af Amer) BUN/Creatinine Ratio Glucose POC Glucose 102 H 107 H Calcium Complement C3 114 Complement C4 35 10/20/20 10/20/20 10/20/20 06:24 06:24 06:46 WBC 12.25 H RBC 3.77 L Hgb 11.8 L Hct 34.5 L MCV 91.5 MCH 31.3 MCHC 34.2 RDW Std Deviation 48.3 H RDW Coeff of Rony 14.4 Plt Count 143 D MPV 12.9 H Neutrophils % (Manual) 35.6 Lymphocytes % (Manual) 20.0 Reactive Lymphs % (Man) 35.7 Monocytes % (Manual) 7.8 Basophils % (Manual) 0.9 Neutrophils # (Manual) 4.36 Total Absolute Neuts 4.36 Lymphocytes # (Manual) 2.45 Reactive Lymphs # 4.37 Total Abs Lymphocytes 6.82 H Monocytes # (Manual) 0.96 H Basophils # (Manual) 0.11 Sodium 135 L Potassium 3.7 Chloride 102 Carbon Dioxide 23 Anion Gap 10.0 BUN 68 H Creatinine 7.90 H* D Est Cr Clr Drug Dosing 11.5 Est GFR ( Amer) 7.6 Est GFR (Non-Af Amer) 6.6 BUN/Creatinine Ratio 8.5 L Glucose 126 H POC Glucose 139 H Calcium 7.7 L Complement C3 Complement C4 10/20/20 12:01 WBC RBC Hgb Hct MCV MCH MCHC RDW Std Deviation RDW Coeff of Rony Plt Count MPV Neutrophils % (Manual) Lymphocytes % (Manual) Reactive Lymphs % (Man) Monocytes % (Manual) Basophils % (Manual) Neutrophils # (Manual) Total Absolute Neuts Lymphocytes # (Manual) Reactive Lymphs # Total Abs Lymphocytes Monocytes # (Manual) Basophils # (Manual) Sodium Potassium Chloride Carbon Dioxide Anion Gap BUN Creatinine Est Cr Clr Drug Dosing Est GFR ( Amer) Est GFR (Non-Af Amer) BUN/Creatinine Ratio Glucose POC Glucose 160 H Calcium Complement C3 Complement C4 PG Care Time/CCT Total # of Minutes Spent Total Time Spent with Patient: Total time spent is greater than 50% in coordination of care (as documented) at patient's floor/unit and/or counseling patient: Coding Level of Care Code 13795 Subseq Hosp Care Lvl 3 Diagnoses Acute renal failure N17.9 Acute renal failure type: unspecified Hypertension I10 Hypertension type: unspecified Chronic kidney disease, stage III (moderate) N18.3 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
--- NOTE | 2020-10-20 11:35 | Operative Report ---
Post Operative Report Pre & Post Diagnosis Operation Date: 10/17/20 11:30 Pre-Op Diagnosis: Acute Kidney Injury Post-Op Diagnosis: Acute Kidney Injury Operation Date: 10/20/20 10:50 Pre-Op Diagnosis: Acute Kidney Injury Post-Op Diagnosis: Acute Kidney Injury I identified the patient and participated in the time-out.: Yes Procedure Operation Date: 10/17/20 11:30 Actual Procedures p Insertion of Temporary Dialysis Catheter, Ultrasound Localization of Left Femoral Vein, Fluoroscopy for Positioning (Left) - Michael Shukla MD Operation Date: 10/20/20 10:50 Actual Procedures p Perm Catheter Placement, Right Internal Jugular Approach, Ultrasound Localization of Right Jugular Vein, Fluoroscopy for Positioning, Removal of Right Femoral Temporary Dialysis Catheter, Moderate Sedation 1108-(Right) - Michael Shukla MD Surgeon Michael Shukla MD Line Construction Engineer Maco Peguero MD Estimated Blood Loss 3 Findings Consistent with Post-Op Diagnosis Specimens Femoral Catheter Description of Procedure Patient was taken to the angio suite and placed in the supine position. The right side of the neck and chest wall were prepped and draped in a sterile manner. The patient was identified and a timeout performed. Local anesthesia was then administered to the appropriate areas of the neck and chest wall. Ultrasound was then used to locate the right internal jugular vein. The vein compressed easily, had no filing defects, and was patent. The vein was then punctured under direct ultrasound imaging. A guidewire was then passed centrally under fluoroscopic imaging. A stab wound was then made in the anterior chest wall and a 19 cm permcath was passed from the stab wound on the chest wall to the puncture site on the neck. The puncture site was then dilated till the 14Fr peel away sheath was inserted. The permcath was then inserted through the sheath to a central position in the distal superior vena cava. The peel away sheath was then removed. The catheter was then sutured in place using nylon sutures. The puncture was then closed using a 4-0 Vicryl subcuticular suture. Dermabond was used for a dressing on the puncture site. Both ports aspirated and flushed easily and were then packed with heparin. A sterile dressing was applied to the catheter. The patient left the angio suite in good condition and tolerated the procedure well.. Dr. Shukla was present and scrubbed for the entire procedure. I attest to the content of the Intraoperative Record and any orders documented therein. Any exceptions are noted below.
--- NOTE | 2020-10-20 11:36 | Post Operative Brief Note ---
Immediate Post Op Note v1 Date of Surgery October 20, 2020 Pre & Post Diagnosis Operation Date: 10/17/20 11:30 Pre-Op Diagnosis: Acute Kidney Injury Post-Op Diagnosis: Acute Kidney Injury Operation Date: 10/20/20 10:50 Pre-Op Diagnosis: Acute Kidney Injury Post-Op Diagnosis: Acute Kidney Injury I identified the patient and participated in the time-out.: Yes Procedure Operation Date: 10/17/20 11:30 Actual Procedures p Insertion of Temporary Dialysis Catheter, Ultrasound Localization of Left Femoral Vein, Fluoroscopy for Positioning (Left) - Michael Shukla MD Operation Date: 10/20/20 10:50 Actual Procedures p Perm Catheter Placement, Right Internal Jugular Approach, Ultrasound Localization of Right Jugular Vein, Fluoroscopy for Positioning, Removal of Right Femoral Temporary Dialysis Catheter, Moderate Sedation [id number](Right) - Michael Shukla MD Surgeon Michael Shukla MD Choir Leader MD Sridevi Estimated Blood Loss 3 Findings Consistent with Post-Op Diagnosis Drains Mcneill Catheter Anesthesia Type RN Sedation Complications none Disposition Accompanied Patient To Recovery: No Disposition: Recovery Room
--- NOTE | 2020-10-20 11:37 | Pre Anesthesia Assessment ---
Date of Service October 20, 2020 Pre Sedation Assessment Vital Signs Temp Pulse Pulse Pulse Resp BP BP 10/20/20 11:30 71 16 150/88 H 10/20/20 11:25 71 18 140/79 10/20/20 11:20 68 16 136/81 10/20/20 11:15 66 16 144/83 H 10/20/20 11:10 69 16 136/78 10/20/20 11:05 66 16 165/82 H 10/20/20 11:00 70 16 159/79 H 10/20/20 10:00 36.7 C 70 18 159/92 H 10/20/20 07:45 36.6 C 63 16 156/87 H 10/19/20 22:52 36.8 C 70 16 151/76 H 10/19/20 14:05 36.6 C 68 16 138/73 10/19/20 12:15 36.6 C 60 16 143/78 H Pulse Ox 10/20/20 11:30 98 10/20/20 11:25 98 10/20/20 11:20 97 10/20/20 11:15 98 10/20/20 11:10 96 10/20/20 11:05 99 10/20/20 11:00 96 10/20/20 10:00 94 10/20/20 07:45 94 10/19/20 22:52 93 10/19/20 14:05 92 10/19/20 12:15 94 Cardiovascular RRR, no murmur, no edema Respiratory normal respiratory effort, lungs clear to auscultation Pre-Sedation Airway Assessment Smoking Status: Unknown if ever smoked Hx Sleep Apnea: No Short, Thick Neck: No Thyromental Distance: > or= 3.5 Finger Breadths Oral Cavity: + WNL Mallampati Class: II ASA: ASA3 NPO Status Date of Last Intake of Fluids: 10/19/20 Time of Last Intake of Fluids: 22:30 Date of Last Intake of Solid Food: 10/19/20 Time of Last Intake of Solid Foods: 22:30 Notes The planned sedation has been discussed with the patient. Informed Consent was obtained. I have identified the patient, determined the appropriateness of sedation and have assessed the patient immediately prior to the procedure. All medicine(s) and interventions are by my order.
[2020-10-20] MEDS ORDERED: INSULIN ASPART 100 UNITS/ML 3 ML PEN SC ONE (12:30)
[2020-10-20] MEDS: DOXYCYCLINE HYCLATE 100 MG in DEXTROSE 5% 100 ML IV SCH (12:39)
[2020-10-20 12:51] LABS: Complement C3 114 mg/dL (82-185)
[2020-10-20] MEDS: INSULIN GLARGINE SOLOSTAR 100 UNITS/ML 3 ML PEN SC SCH (21:15)
[2020-10-21] MEDS: DOXYCYCLINE HYCLATE 100 MG in DEXTROSE 5% 100 ML IV SCH ×2 (00:39→13:01)
[2020-10-21] MEDS: LEVOTHYROXINE SODIUM 50 MCG TABLET PO SCH (05:22)
[2020-10-21 06:26] LABS: Hematocrit (blood only) 32.3 % (42-52); Hemoglobin 10.8 g/dL (14.0-18.0); Mean Corpuscular Hemoglobin 30.8 pg (25-34); Mean Corpuscular Hgb Conc 33.4 g/dL (32-36); Mean Platelet Volume 11.9 fL (7.4-10.4); Platelet Count 204 K/uL (130-400); RDW Coefficient of Variation 14.2 % (11.5-14.5); RDW Standard Deviation 48.1 fL (36.4-46.3); Red Blood Count 3.51 M/uL (4.7-6.1); White Blood Count 11.68 K/uL (4.8-10.8)
--- NOTE | 2020-10-21 06:56 | Hospitalist Progress Note ---
Date of Service October 21, 2020 Assessment & Plan (1) Acute renal failure: 64 yo M Hx renal cell carcinoma s/p right nephrectomy in 2012, HTN, HLD, hypothyroidism, DM2 on insulin therapy admitted for acute renal failure with suspected tick-borne infection. (1) Acute renal failure, due ATN from anaplasmosis septic hypovolemia, Hx right nephrectomy for RCC History of radical HALN R kidney and adrenal gland at [facility] 10/21. On admission found to have creatinine 6 (baseline 1.7) with BUN/Cr ratio of 10. CTAP negative for obstructive disease. Urine lytes showing evidence of intrinsic damage. Complement levels WNL - antibodies pending. 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 (4) HTN, HLD: - Continue metoprolol and statin. (5) Hypothyroidism: - Continue levothyroxine. (6) IDDM2 - Cont home 30u lantus HS with SSI - DKA episode x 1, resolved after restarting home lantus dosing Code Status: FULL CODE FEN: DM2 diet DVT ppx: SCDs, Dispo: PCU (2) Hypertension: (3) Hypothyroidism: (4) Hyperlipidemia: (5) Diabetes mellitus type 2 with complications: Admission and Anticipated Discharge Date Admission Date: October 16, 2020 Subjective Patient seen at bedside. He is AAOx3, slept well voiding normally. Nausea interferes with his appetite but he ate full breakfast. Permacath was placed yesterday and femoral catheter was removed. Per nurse femoral catheter site has small amount of drainage, dialysis yesterday via permacath stopped due to clotting. Patient would like to know when he can go home. Review of Systems Review of Systems: +Nausea negative fever chills headache dizziness vomitting diarrhea constipation SOB palpitations numbness tingling rashes Physical Exam Physical Exam: Heart: RRR, no gallops/rubs/murmurs Lungs: cta b/l, no wheezes/rales/rhonchi Extremities: +1 pitting edema up to knees b/l Skin: dressing on new permacath no erythema or drainage Results & Data Results & Data ([facility]) Vital Signs (Past 12 Hours) Vital Signs Temp Pulse Resp BP Pulse Ox 10/20/20 22:19 36.7 C 81 16 150/80 H 91 Laboratory Results 10/21/20 10/21/20 10/21/20 Range/Units 08:27 06:10 06:10 WBC 11.68 H (4.8-10.8) K/uL RBC 3.51 L (4.7-6.1) M/uL Hgb 10.8 L (14.0-18.0) g/dL Hct 32.3 L (42-52) % MCV 92.0 (80-100) fL MCH 30.8 (25-34) pg MCHC 33.4 (32-36) g/dL RDW Std Deviation 48.1 H (36.4-46.3) fL RDW Coeff of Rony 14.2 (11.5-14.5) % Plt Count 204 (130-400) K/uL MPV 11.9 H (7.4-10.4) fL Neutrophils % (Manual) 41.0 % Lymphocytes % (Manual) 15.0 % Reactive Lymphs % (Man) 28.0 % Monocytes % (Manual) 15.0 % Metamyelocytes % (Man) 1.0 % Neutrophils # (Manual) 4.79 (1.4-6.5) K/uL Total Absolute Neuts 4.79 (1.4-6.5) K/uL Lymphocytes # (Manual) 1.75 (1.2-3.4) K/uL Reactive Lymphs # 3.27 K/uL Total Abs Lymphocytes 5.02 H (1.2-3.4) K/uL Monocytes # (Manual) 1.75 H (0.11-0.59) K/uL Metamyelocytes # (Man) 0.12 H (0-0) K/uL Sodium 137 (136-145) mmol/L Potassium 3.7 (3.5-5.1) mmol/L Chloride 104 (98-107) mmol/L Carbon Dioxide 26 (21-32) mmol/L Anion Gap 7.0 (3-11) BUN 57 H (7-18) mg/dl Creatinine 7.13 H* D (0.6-1.4) mg/dl Est Cr Clr Drug Dosing 12.9 ml/min Est GFR ( Amer) 8.7 ml/min Est GFR (Non-Af Amer) 7.5 ml/min BUN/Creatinine Ratio 8.0 L (10-20) Glucose 86 (70-99) mg/dl POC Glucose 84 (70-99) mg/dl Calcium 7.2 L (8.5-10.1) mg/dl Complement C3 (82-185) mg/dL Complement C4 (15-53) mg/dL 10/20/20 10/20/20 10/20/20 Range/Units 20:37 17:50 12:01 WBC (4.8-10.8) K/uL RBC (4.7-6.1) M/uL Hgb (14.0-18.0) g/dL Hct (42-52) % MCV (80-100) fL MCH (25-34) pg MCHC (32-36) g/dL RDW Std Deviation (36.4-46.3) fL RDW Coeff of Rony (11.5-14.5) % Plt Count (130-400) K/uL MPV (7.4-10.4) fL Neutrophils % (Manual) % Lymphocytes % (Manual) % Reactive Lymphs % (Man) % Monocytes % (Manual) % Metamyelocytes % (Man) % Neutrophils # (Manual) (1.4-6.5) K/uL Total Absolute Neuts (1.4-6.5) K/uL Lymphocytes # (Manual) (1.2-3.4) K/uL Reactive Lymphs # K/uL Total Abs Lymphocytes (1.2-3.4) K/uL Monocytes # (Manual) (0.11-0.59) K/uL Metamyelocytes # (Man) (0-0) K/uL Sodium (136-145) mmol/L Potassium (3.5-5.1) mmol/L Chloride (98-107) mmol/L Carbon Dioxide (21-32) mmol/L Anion Gap (3-11) BUN (7-18) mg/dl Creatinine (0.6-1.4) mg/dl Est Cr Clr Drug Dosing ml/min Est GFR ( Amer) ml/min Est GFR (Non-Af Amer) ml/min BUN/Creatinine Ratio (10-20) Glucose (70-99) mg/dl POC Glucose 200 H 152 H 160 H (70-99) mg/dl Calcium (8.5-10.1) mg/dl Complement C3 (82-185) mg/dL Complement C4 (15-53) mg/dL 10/17/20 Range/Units 11:36 WBC (4.8-10.8) K/uL RBC (4.7-6.1) M/uL Hgb (14.0-18.0) g/dL Hct (42-52) % MCV (80-100) fL MCH (25-34) pg MCHC (32-36) g/dL RDW Std Deviation (36.4-46.3) fL RDW Coeff of Rony (11.5-14.5) % Plt Count (130-400) K/uL MPV (7.4-10.4) fL Neutrophils % (Manual) % Lymphocytes % (Manual) % Reactive Lymphs % (Man) % Monocytes % (Manual) % Metamyelocytes % (Man) % Neutrophils # (Manual) (1.4-6.5) K/uL Total Absolute Neuts (1.4-6.5) K/uL Lymphocytes # (Manual) (1.2-3.4) K/uL Reactive Lymphs # K/uL Total Abs Lymphocytes (1.2-3.4) K/uL Monocytes # (Manual) (0.11-0.59) K/uL Metamyelocytes # (Man) (0-0) K/uL Sodium (136-145) mmol/L Potassium (3.5-5.1) mmol/L Chloride (98-107) mmol/L Carbon Dioxide (21-32) mmol/L Anion Gap (3-11) BUN (7-18) mg/dl Creatinine (0.6-1.4) mg/dl Est Cr Clr Drug Dosing ml/min Est GFR ( Amer) ml/min Est GFR (Non-Af Amer) ml/min BUN/Creatinine Ratio (10-20) Glucose (70-99) mg/dl POC Glucose (70-99) mg/dl Calcium (8.5-10.1) mg/dl Complement C3 114 (82-185) mg/dL Complement C4 35 (15-53) mg/dL Medications Administered Current Inpatient Medications Acetaminophen (Acetaminophen 325 Mg Tab) 650 mg PO Q4H PRN PRN Reason: Pain or Fever Stop: 11/15/20 22:56 Atorvastatin Calcium (Atorvastatin 10 Mg Tab) 10 mg PO DAILY LESLY Stop: 11/16/20 08:59 Last Admin: 10/20/20 10:07 Dose: Not Given Documented by: Dextrose (Dextrose 50% 50 Ml Syringe) 25 - 50 ml IV UD PRN; Protocol PRN Reason: Hypoglycemia Protocol Stop: 11/15/20 22:56 Fluticasone Propionate (Fluticasone Propionate Na Spr 16 Gm Btl) 1 sprays NA DAILY PRN PRN Reason: nasal Stop: 11/15/20 23:19 Glucagon (Glucagon For Inj 1 Mg Vial) 1 mg SQ UD PRN; Protocol PRN Reason: Hypoglycemia Protocol Stop: 11/15/20 22:56 Glucose (Glucose 10 Tabs/Tube) 4 - 8 tabs PO UD PRN; Protocol PRN Reason: Hypoglycemia Protocol Stop: 11/15/20 22:56 Glucose (Glucose 40% Gel 15 Gm Tube) 15 - 30 gm PO UD PRN; Protocol PRN Reason: Hypoglycemia Protocol Stop: 11/15/20 22:56 Doxycycline Hyclate 100 mg/ (Dextrose) 110 mls @ 50 mls/hr IV Q12H [facility] Stop: 10/27/20 11:14 Last Infusion: 10/21/20 02:49 Dose: Infused Documented by: Insulin Aspart (Insulin Aspart 100 Units/Ml 3 Ml Pen) 0 units SC ACHS LESLY Stop: 11/19/20 16:29 Last Admin: 10/20/20 21:16 Dose: 4 units Documented by: Insulin Glargine (Insulin Glargine Solostar 100 Units/Ml 3 Ml Pen) 30 units SC HS L[facility]LY Stop: 11/16/20 13:59 Last Admin: 10/20/20 21:15 Dose: 30 units Documented by: Levothyroxine Sodium (Levothyroxine Sodium 50 Mcg Tablet) 50 mcg PO DAILYBB [facility] Stop: 11/16/20 06:29 Last Admin: 10/21/20 05:22 Dose: 50 mcg Documented by: Metoprolol Tartrate (Metoprolol Tartrate 25 Mg Tab) 25 mg PO DAILY [facility] Stop: 11/16/20 08:59 Last Admin: 10/20/20 10:11 Dose: Not Given Documented by: Miscellaneous (Carbohydrates For Hypoglycemia ) 15 - 30 gm PO UD PRN PRN Reason: Hypoglycemia Protocol Stop: 11/15/20 22:56 Multivitamins (Multivitamin Tab) 1 tab PO DAILY [facility] Stop: 11/16/20 08:59 Last Admin: 10/20/20 10:08 Dose: Not Given Documented by: Ondansetron HCl (Ondansetron Inj 2 Mg/Ml 2 Ml Vial) 4 mg IV Q6H PRN PRN Reason: Nausea Stop: 11/15/20 22:56 Last Admin: 10/20/20 12:39 Dose: 4 mg Documented by: Resident Activity Tracking Resident Involvement: Resident Care Provided Care Provided: Adult Hospital Medicine (1) Acute renal failure Acute renal failure type: unspecified Qualified Code(s): N17.9 - Acute kidney failure, unspecified (2) Hyperlipidemia Hyperlipidemia type: unspecified Qualified Code(s): E78.5 - Hyperlipidemia, unspecified (3) Hypothyroidism Hypothyroidism type: unspecified Qualified Code(s): E03.9 - Hypothyroidism, unspecified (4) Hypertension Hypertension type: unspecified Qualified Code(s): I10 - Essential (primary) hypertension
[2020-10-21 07:17] LABS: ALC (manual) 5.02 K/uL (1.2-3.4); ANC (manual) 4.79 K/uL (1.4-6.5); Lymphocytes # (manual) 1.75 K/uL (1.2-3.4); Metamyelocytes # (manual) 0.12 K/uL (0-0); Monocytes # (manual) 1.75 K/uL (0.11-0.59); Neutrophils # (manual) 4.79 K/uL (1.4-6.5); Reactive Lymphocytes # (manual) 3.27 K/uL
[2020-10-21 07:25] LABS: Calcium 7.2 mg/dl (8.5-10.1); Creatinine Clr Calc Pharmacy 12.9 ml/min; Est GFR (African American) 8.7 ml/min; Est GFR (Non-African American) 7.5 ml/min; Potassium 3.7 mmol/L (3.5-5.1)
--- NOTE | 2020-10-21 10:00 | Nephrology Progress Note ---
Date of Service October 21, 2020 Assessment & Plan (1) Acute renal failure: Requiring WELLNESS CONSULTANT. Adequate clearance with treatment yesterday. Electrolytes controlled. Volume status acceptable. Anticipate next treatment tomorrow. Clinical presentation consistent with ATN in setting of anaplasmosis. Urine microscopy notable for microscopic hematuria + protein. Complete serologic GN evaluation pending. Complement levels normal. Temporary femoral catheter placed 10/17. First HD treatment 10/17. R IJ permcath placed 10/20. Case management consulted for outpatient HD arrangements ([facility] - Dr. Asencio) (2) Hypertension: BP and volume status acceptable. 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 Medical history notable for DM and hypertension. Medications appropriately dosed for kidney dysfunction. (4) Anaplasmosis: Remains on doxycycline. Admission and Anticipated Discharge Date Admission Date: October 16, 2020 Subjective No acute events overnight. HD stopped early yesterday due to clotting. Adequate clearance. Heparin was held due to permcath placement. Grayson feels well today. He hopes to be discharged home. Review of Systems Review of Systems: All systems reviewed & are unremarkable except as noted in HPI & below Physical Exam Constitutional: well developed; no acute distress Eyes: no scleral abnormality and no corneal abnormality ENMT: Mouth: no oral mucosal abnormality and oral mucous membranes not dry Neck: normal visual inspection and trachea midline Respiratory: normal respiratory effort Auscultation: lungs clear to auscultation bilaterally Cardiovascular: Rate/Rhythm: regular rate Heart Sounds: normal S1 and normal S2 Extremities: no edema Musculoskeletal: Extremities: no cyanosis and no clubbing Skin: normal turgor; no lesions Neurologic: Motor/Sensory: no tremor and no asterixis Psychiatric: Orientation: alert and oriented x 3 Results & Data ([facility]) Vital Signs (Past 12 Hours) Vital Signs Temp Pulse Pulse Resp BP Pulse Ox 10/21/20 08:23 36.7 C 74 16 151/76 H 92 10/20/20 22:19 36.7 C 81 16 150/80 H 91 Laboratory Results Laboratory Results - last 24 hr 10/17/20 10/20/20 10/20/20 11:36 12:01 17:50 WBC RBC Hgb Hct MCV MCH MCHC RDW Std Deviation RDW Coeff of Rony Plt Count MPV Neutrophils % (Manual) Lymphocytes % (Manual) Reactive Lymphs % (Man) Monocytes % (Manual) Metamyelocytes % (Man) Neutrophils # (Manual) Total Absolute Neuts Lymphocytes # (Manual) Reactive Lymphs # Total Abs Lymphocytes Monocytes # (Manual) Metamyelocytes # (Man) Sodium Potassium Chloride Carbon Dioxide Anion Gap BUN Creatinine Est Cr Clr Drug Dosing Est GFR ( Amer) Est GFR (Non-Af Amer) BUN/Creatinine Ratio Glucose POC Glucose 160 H 152 H Calcium Complement C3 114 Complement C4 35 10/20/20 10/21/20 10/21/20 20:37 06:10 06:10 WBC 11.68 H RBC 3.51 L Hgb 10.8 L Hct 32.3 L MCV 92.0 MCH 30.8 MCHC 33.4 RDW Std Deviation 48.1 H RDW Coeff of Rony 14.2 Plt Count 204 MPV 11.9 H Neutrophils % (Manual) 41.0 Lymphocytes % (Manual) 15.0 Reactive Lymphs % (Man) 28.0 Monocytes % (Manual) 15.0 Metamyelocytes % (Man) 1.0 Neutrophils # (Manual) 4.79 Total Absolute Neuts 4.79 Lymphocytes # (Manual) 1.75 Reactive Lymphs # 3.27 Total Abs Lymphocytes 5.02 H Monocytes # (Manual) 1.75 H Metamyelocytes # (Man) 0.12 H Sodium 137 Potassium 3.7 Chloride 104 Carbon Dioxide 26 Anion Gap 7.0 BUN 57 H Creatinine 7.13 H* D Est Cr Clr Drug Dosing 12.9 Est GFR ( Amer) 8.7 Est GFR (Non-Af Amer) 7.5 BUN/Creatinine Ratio 8.0 L Glucose 86 POC Glucose 200 H Calcium 7.2 L Complement C3 Complement C4 10/21/20 08:27 WBC RBC Hgb Hct MCV MCH MCHC RDW Std Deviation RDW Coeff of Rony Plt Count MPV Neutrophils % (Manual) Lymphocytes % (Manual) Reactive Lymphs % (Man) Monocytes % (Manual) Metamyelocytes % (Man) Neutrophils # (Manual) Total Absolute Neuts Lymphocytes # (Manual) Reactive Lymphs # Total Abs Lymphocytes Monocytes # (Manual) Metamyelocytes # (Man) Sodium Potassium Chloride Carbon Dioxide Anion Gap BUN Creatinine Est Cr Clr Drug Dosing Est GFR ( Amer) Est GFR (Non-Af Amer) BUN/Creatinine Ratio Glucose POC Glucose 84 Calcium Complement C3 Complement C4 PG Care Time/CCT Total # of Minutes Spent Total Time Spent with Patient: Total time spent is greater than 50% in coordination of care (as documented) at patient's floor/unit and/or counseling patient: Coding Level of Care Code 34776 Subseq Hosp Care Lvl 3 Diagnoses Acute renal failure N17.9 Acute renal failure type: unspecified Hypertension I10 Hypertension type: unspecified Chronic kidney disease, stage III (moderate) N18.3 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
[2020-10-21] MEDS: MULTIVITAMIN TAB PO SCH (10:05)
[2020-10-21] MEDS: ATORVASTATIN 10 MG TAB PO SCH (10:05)
[2020-10-21] MEDS: INSULIN ASPART 100 UNITS/ML 3 ML PEN SC SCH ×3 (10:05→18:11)
[2020-10-21] MEDS: METOPROLOL TARTRATE 25 MG TAB PO SCH (10:05)
[2020-10-21 13:27] LABS: Creatinine Ur 92 mg/dL (20-320); Protein, Urine Random 179 mg/dL (5-25); Ur Protein/Creat Ratio mg/g 1946 mg/g creat (22-128); Urine Abnormal Protein Band 1 DNR mg/dL (NONE DETECTED); Urine Abnormal Protein Band 2 DNR mg/dL (NONE DETECTED); Urine Abnormal Protein Band 3 DNR mg/dL (NONE DETECTED); Urine Protein/Creatinine Ratio 1.946 (0.022-0.128)
--- NOTE | 2020-10-21 18:59 | Discharge Summary ---
Date of Service October 21, 2020 Admission HPI Per Admitting Provider 64 yo M Hx renal cell carcinoma s/p right nephrectomy in 2013, HTN, HLD, hypothyroidism, DM2 on insulin therapy presents as a direct admission for acute renal failure, elevated LFTs, leukopenia, and thrombocytopenia. History gathered from outside hospital records, patient, and patient's . For the last several days patient has had fatigue, malaise, nausea, diarrhea, headaches. He was evaluated via Telehealth by PCP and thought to be sinus infection, supportive care. When symptoms did not go away and patient began to have decreased urination and changes in mental status they went to [facility]. There he had labwork which showed elevated Cr of 6, elevated LFTs, thrombocytopenia to 40s, and leukopenia. CTAP and RUQ US without liver pathology, pyelonephritis, other renal pathologies. CXR negative for pneumonia or fluid overload. Patient follows with Dr. Powell and was advised to be admitted here at [facility] for ARF. On my interview patient denies chest pain, SOB, fevers, chills, recent sick contacts, vomiting, abdominal pain. He denies hematuria, dysuria. He does not recall any recent tick bites, however reports "picking a small black spot off of his thigh a few days ago". Admission Exam Per Admitting Provider Constitutional: WD/WN, vitals as above Eyes: PERRL, conjunctivae normal, anicteric sclerae Neck: normal visual inspection Respiratory: normal respiratory effort, lungs clear to auscultation Cardiovascular: RRR, no murmur, no edema Gastrointestinal (Abdomen): Inspection/Auscultation: + abdomen distended and normal bowel sounds Percussion/Palpation: + abdomen tender (mild epigastric) and abdomen soft Musculoskeletal: no cyanosis or clubbing, moves all extremities Skin: no rashes, warm and dry Neurologic: Alert, tired appearing, answers questions appropriately. No tremors. 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 complicated by diabetes hypertension hyperlipidemia Discharge Exam General: Lying in bed no acute distress HEENT: Normocephalic atraumatic Neck: Normal to visual inspection, negative for JVD Cardiac: Regular rhythm I did not appreciate significant murmurs rubs or gallops, normal S1, normal S2, 1+ pedal edema bilaterally, negative calf tenderness Respiratory:Clear to auscultation bilaterally with symmetrical chest expansion I did not appreciate any significant wheezes, rales, rhonchi, no increased work of breathing GI: Bowel sounds present Neuro: Alert and oriented x4 Psych: Calm and cooperative with the interview Discharge Data Allergies Allergy/AdvReac Type Severity Reaction Status Date / Time Sulfa (Sulfonamide Allergy Intermediate RASH AND Verified 10/14/20 15:57 Antibiotics) THROAT SWELLING Consultations 10/16/20 22:57 Consult Nephrology Routine 10/17/20 11:30 Consult Vascular Surgery Routine Procedures Performed Operation Date: 10/17/20 11:30 Actual Procedures p Insertion of Temporary Dialysis Catheter, Ultrasound Localization of Left Femoral Vein, Fluoroscopy for Positioning (Left) - Michael Shukla MD Operation Date: 10/20/20 10:50 Actual Procedures p Perm Catheter Placement, Right Internal Jugular Approach, Ultrasound Localization of Right Jugular Vein, Fluoroscopy for Positioning, Removal of Right Femoral Temporary Dialysis Catheter, Moderate Sedation [id number](Right) - Michael Shukla MD Ordered Studies 10/17/20 12:27 EV cvc insrt tunnel wo prt/log cooker Routine 10/17/20 12:28 US EV guide vascular access Routine 10/20/20 07:14 EV cvc repair tunnl wo prt/log cooker Routine US EV guide vascular access Routine Hospital Course (1) Acute renal failure: 64 yo M Hx renal cell carcinoma s/p right nephrectomy in 2012, HTN, HLD, hypothyroidism, DM2 on insulin therapy admitted for acute renal failure with suspected tick-borne infection. Acute renal failure, due ATN from anaplasmosis septic hypovolemia Patient with a history of right nephrectomy for renal cell carcinoma and adrenal glands are [facility] on in October 2012. On admission patient presented with a creatinine of 6.0, baseline was 1.7 with a BUN to creatinine ratio of 10. CTAP was negative for obstructive disease, and urine electrolytes showing evidence of intrinsic damage. Complement levels were within normal limits. Patient's peripheral smear demonstrated anaplasmosis, given his labs acute renal failure was suspected secondary to this illness. Nephrology was consulted recommending hemodialysis. Patient was placed on temporary dialysis catheter and tolerated dialysis on 10/17 and 10/18. Permacath was placed on 10/20. Dialysis was attempted on 10/21 however the catheter was clogged. Case management assisted in arranging for outpatient hemodialysis in [place]. -Follow-up BMP at the end of the week -Follow-up with PCP Anaplasmosis Confirmed on peripheral blood smear analysis as above. Patient was provided with IV doxycycline twice daily for 5 days, discharged on a 5-day course of p.o. doxycycline. - Babesia, Ehrlichia labs pending - lyme negative -PCP to consider follow-up peripheral smear Thrombocytopenia - improving Due to anaplasmosis -Follow-up with outpatient CBC HTN, HLD: - Continue metoprolol and statin. - Stop losartan on DC, resume pending follow-up with nephrology (5) Hypothyroidism: - Continue levothyroxine. (6) IDDM2 - Cont home 30u lantus HS with SSI - DKA episode x 1, resolved after restarting home lantus dosing Total Time Total Time Spent Total Time Spent (In Minutes): 45 Discharge Plan Discharge Items Patient Disposition: Home - Self-Care Reason For Visit: ACUTE NON TRAUMATIC KIDNEY INJURY Discharge Diagnosis: ARF secondary to anaplasmosis Activity: Resume your previous activity Non-emergency contact: Primary Care Provider and [employer] Call non-emergency contact if: you have any medication questions, your pain is not controlled and your temperature is above 101.5 Follow-up/Referrals: Gypsy Matt DO [Primary Care Provider] - Diet: Dialysis Renal Addtl Attending Provider Instructions: Care instructions: You were admitted to [facility] for treatment of anaplasmosis tickborne illness. While hospitalized it was noticed that your kidney function was abnormal secondary to being infection. Unfortunately your kidneys went into failure which necessitated the placement access for dialysis. Our case supervisor have assisted in arranging for outpatient dialysis in [place]. Upon discharge you are to complete your antibiotic course, 5 additional days of doxycycline. This medication has been called into the [facility] in [place] Please stop taking losartan and discuss resuming it with your primary care provider and switch adjuster Please refrain from taking sildenafil until discussing with your primary care provider and switch adjuster A discharge summary will be sent to your primary care physician to ensure continuity of care. Please bring this discharge summary with you to your next office appointment so that your provider can review it at that time. Follow-up appointments: - Keep all your follow-up appointments as already scheduled. If you cannot make an appointment, notify your provider. - Please call to request a follow-up appointment with your primary care physician within one week of discharge. Please let us know if you are unable to obtain an appointment Medications: - Your medication list has been reviewed and reconciled upon discharge to ensure accuracy and continuity of care. - You are provided with a list of all your current medications at this time. Please review this list closely and make note of any changes. - Please take all of your medications exactly as prescribed. - Tell your primary care provider if you cannot afford your medications. - Call your primary care provider if you are having any side effects or any other problems. - Call your primary care provider before taking any over the counter medications or supplements, including herbals and vitamins, because some of these may interact with your current medications and/or make your symptoms worse. Symptoms: Please call your primary care provider for symptoms including, but not limited to: fevers (temperatures greater than 100.4), chills, intractable nausea or vomiting, diarrhea, rash, shortness of breath, bleeding, pain, or if you experience any worsening of the symptoms that brought you to the hospital. For EMERGENCY and VERY SERIOUS health-related issues, such as chest pain, shortness of breath, or sudden onset of the symptoms that brought you to the hospital, you may need to call 911 or go directly to the Emergency Room It has been our privilege to take care of you during your hospital stay. And Above All Else Feel Better! Best Wishes, Nai Mari DO PGY1 Resident, Family & Community Medicine [facility] Residency at [facility] - [address], [address] : [place] [address] Pending Studies at Discharge: No Stand-Alone Forms: My [facility], Smoking Cessation Medications and DC Order Prescriptions: New doxycycline hyclate 100 mg tablet 100 mg PO BID 5 Days Qty: 10 RF: 0 Continued aspirin 81 mg tablet 81 mg PO DAILY RF: 0 cholecalciferol (vitamin D3) 2,000 unit tablet 4,000 units PO DAILY RF: 0 metoclopramide HCl 10 mg tablet 10 mg PO BID Qty: 180 RF: 0 OneTouch Ultra Blue Test Strip Strip See Rx Instructions .ROUTE .COMPLEX Qty: 400 RF: 3 insulin lispro [Humalog KwikPen Insulin] 100 unit/mL insulin pen See Rx Instructions .ROUTE .COMPLEX Qty: 45 RF: 2 Lantus U-100 Insulin 100 unit/mL solution 30 unit subcut HS Qty: 10 RF: 3 metoprolol tartrate 25 mg tablet 25 mg PO DAILY Qty: 90 RF: 1 atorvastatin 10 mg tablet 10 mg PO DAILY Qty: 90 RF: 1 levothyroxine 50 mcg tablet 50 mcg PO DAILY Qty: 90 RF: 1 multivitamin tablet 1 tab PO DAILY RF: 0 (DME) pen needle, diabetic [Pen Needle] 31 gauge x 5/16" needle See Dose Instructions .ROUTE .MEDSUPPLY Qty: 50 RF: 3 sildenafil 100 mg tablet 100 mg PO DAILY PRN (Reason: sexual activity) Qty: 20 RF: 11 fluticasone propionate [Flonase Allergy Relief] 50 mcg/actuation spray,suspension 1 sprays INTNAS DAILY PRN (Reason: nasal) RF: 0 Discontinued losartan 50 mg tablet See Rx Instructions .ROUTE .COMPLEX Qty: 90 RF: 3 Discharge Orders: Discharge Order (Routine); Ordered 10/21/20 Ordered By: Michael Schumacher/Other Patient Handouts: Controlling High Blood Pressure, Blood Pressure Check Steps Admission Data Admit Date/Time: 10/16/20 22:57 Attending Provider: Conrado Haile Admit Provider: Ernie Gomez Primary Care Provider: Gypsy Matt Other Providers: Ernie Gomez ; Xin Asencio ; Michael Shukla Other Interventions: Discharge Summary Assessment (RN) Last Done: 10/21/20 19:15 Supervising Physician Co-Signing Physician Notes Attending attestation Pt seen and examined in concert with Dr. Walker. In agreement with the documented findings as noted in the resident documentation with any exceptions or additions as noted here. Resting comfortably in bed with continuing improvement in nausea (now relatively resolved) On examination, S1/S2 nl RRR no MCG. CTAB. Abd NT/ND BS+ve. Permacath in place, R IJ, C/D/I ATN 2/2 anaplasmosis requiring HD - neprhology consult - tolerating HD well - transition to outpatient with close follow up with PCP and nephrology. Complete course of tx for anaplasmosis/lyme. Else see resident documentation as noted. Total attending time spent on this case on the day of discharge: 35 minutes. Resident Activity Tracking Resident Involvement: Resident Care Provided Care Provided: Adult Hospital Medicine
[2020-10-22 13:20] LABS: Albumin 2.1 g/dL (3.8-4.8); Alpha 1 Globulin 0.5 g/dL (0.2-0.3); Alpha 2 Globulin 0.6 g/dL (0.5-0.9); Beta-1-Globulin 0.3 g/dL (0.4-0.6); Beta-2-Globulin 0.3 g/dL (0.2-0.5); Gamma Globulin 0.5 g/dL (0.8-1.7); Hepatitis B Core Antibody IgM NON-REACTIVE (NON-REACTIVE); Monoclonal Protein Band 1 DNR g/dL (NONE DETECTED); Monoclonal Protein Band 2 DNR g/dL (NONE DETECTED); Monoclonal Protein Band 3 DNR g/dL (NONE DETECTED); Total Protein 4.3 g/dL (6.1-8.1)
[2020-10-22 21:22] LABS: Ehrlichia chaff IgG Ab <1:64 (<1:64); Ehrlichia chaff IgM Ab <1:20 (<1:20)
[2020-10-23 12:57] LABS: ANCA Screen Negative (Negative); Albumin 2.2 g/dL (3.8-4.8); Alpha 1 Globulin 0.5 g/dL (0.2-0.3); Alpha 2 Globulin 0.6 g/dL (0.5-0.9); Anti-Glom Basement Antibody <1.0 AI (<1.0); Beta-1-Globulin 0.3 g/dL (0.4-0.6); Beta-2-Globulin 0.3 g/dL (0.2-0.5); Free Kappa 115.2 mg/L (3.3-19.4); Free Kappa/Lambda Ratio 2.28 (0.26-1.65); Free Lambda 50.5 mg/L (5.7-26.3); Gamma Globulin 0.5 g/dL (0.8-1.7); Monoclonal Protein Band 1 DNR g/dL (NONE DETECTED); Monoclonal Protein Band 2 DNR g/dL (NONE DETECTED); Monoclonal Protein Band 3 DNR g/dL (NONE DETECTED); Myeloperoxidase Ab <1.0 AI (<1.0); Proteinase-3 AB <1.0 AI (<1.0); Total Protein 4.5 g/dL (6.1-8.1)
[2020-10-23 16:17] LABS: Babesia microti IgG <1:64 titer (<1:64)
--- NOTE | 2020-11-02 23:48 | Billing Data ---
Date of Service October 18, 2020 Coding Level of Care Code 16347 Subseq Hosp Care Lvl 2
--- NOTE | 2020-11-04 08:48 | Coding Query ---
SEPSIS To promote full compliance with coding requirements relating to patient care, physician participation is requested in all cases of licensed insurance agent uncertainty. Please assist us with the question(s) below: In responding to this query, please exercise your independent professional judgement. The fact that a question is asked does not imply that any particular answer is desired or expected. We appreciate your clarification on this issue. Throughout the medical record, you have clearly documented a localized infection and your patient has clinical evidence of a generalized sepsis or severe sepsis. The term urosepsis is a nonspecific entity and is coded as an UTI. If the patient has sepsis, severe sepsis, from an urinary source or some other source, please clarify in your response below. The medical record reflects the following clinical findings: Patient admitted with anasplasmosis and ATN. History of kidney CA and nephrectomy. 10/20 progress note mentions ATN, anasplasmosis and sepsis. Seeking to clarify if Patient was treated for Sepsis . Thanks for your help. Jet Melendez [facility] ____ (X)Bacteremia (Nonspecific laboratory finding of bacteria in the blood) Specify Organism - Anaplasmosis (x) Present on Admission ( ) Not present on admission ( ) Unable to clinically determine ( ) Septicemia (Systemic disease associated with the presence of pathogenic microorganisms in the blood): Specify Organism ( ) Present on Admission ( ) Not present on admission ( ) Unable to clinically determine ( ) Sepsis Specify Organism Specify Associated Condition/Diagnosis ( ) Present on Admission ( ) Not present on admission ( ) Unable to clinically determine ( ) Severe Sepsis (Sepsis associated with acute organ dysfunction) Specify Organism Specify Associated Condition/Diagnosis ( ) Present on Admission ( ) Not present on admission Unable to clinically determine ( ) Septic Shock (Severe sepsis with acute circulatory failure, unexplained by other causes) ( ) Present on Admission ( ) Not present on admission ( ) Unable to clinically determine () Other, patient has: MTDD
--- NOTE | 2020-11-04 13:51 | Billing Data ---
Date of Service October 19, 2020 Coding Level of Care Code 30021 Subseq Hosp Care Lvl 2
== END 2020-10-21 20:00 | disposition home or self-care (01) | DRG 867 ==
LOC: 2S 22:29 → SUATTDRO 22:29 → 2S 10-17 → 3W 10-19 12:18